=== PATIENT | male | born 1970 | race Two or more races ===

== ENCOUNTER 2018-08-01 16:02 | Inpatient (IN) | payer OTHER ==
[2018-08-01 17:14] VITALS: BMI 33.9
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
[2018-08-01] MEDS ORDERED: ACETAMINOPHEN 325 MG TABLET (FP) PO PRN (20:07)
[2018-08-01] MEDS ORDERED: guaiFENesin/D-METHORPHAN HB 10 ML UNIT-DOSE CUPS PO PRN (20:07)
[2018-08-01] MEDS ORDERED: LOPERAMIDE HCL 2 MG CAPSULE PO PRN (20:07)
[2018-08-01] MEDS ORDERED: P-EPHED 60MG/TRIPROLIDI 2.5MG TABLET PO PRN (20:07)
[2018-08-01] MEDS ORDERED: MAGNESIUM HYDROX 2400MG/30ML ORAL SUSPENSION 30 ML CUP PO PRN (20:07)
[2018-08-01] MEDS ORDERED: MAGNESIUM CITRATE 300 ML BOTTLE PO PRN (20:07)
[2018-08-01] MEDS ORDERED: MENTHOL/PHENOL 1 EACH UD MM PRN (20:07)
[2018-08-01] MEDS ORDERED: NICOTINE POLACRILEX 4 MG GUM BUC PRN (20:32)
[2018-08-01] MEDS ORDERED: chlordiazePOXIDE HCL 25 MG CAPSULE PO PRN (20:36)
[2018-08-01] MEDS ORDERED: chlordiazePOXIDE HCL 25 MG CAPSULE PO ONE (20:45)
[2018-08-01] MEDS: THIAMINE HCL 100 MG TABLET (FP) PO SCH (21:59)
[2018-08-01] MEDS: chlordiazePOXIDE HCL 25 MG CAPSULE PO SCH (21:59)
[2018-08-01] MEDS: cloNIDine HCL 0.1 MG TABLET PO SCH (21:59)
[2018-08-01] MEDS: MELATONIN 5 MG TABLETS PO PRN (22:59)
[2018-08-02] MEDS: hydrOXYzine PAMOATE 50 MG CAPSULE (FP) PO PRN (00:23)
[2018-08-02] MEDS: IBUPROFEN 400 MG TABLET (FP) PO PRN (00:23)
[2018-08-02 00:48] LABS: URINE APPEARANCE CLEAR; URINE BILIRUBIN NEGATIVE (<2.0 mg/dL); URINE COLOR STRAW; URINE GLUCOSE (UA) NEGATIVE (NEGATIVE); URINE KETONE NEGATIVE (NEGATIVE); URINE LEUK ESTERASE TRACE (NEGATIVE); URINE NITRITE NEGATIVE (NEGATIVE); URINE PROTEIN NEGATIVE (NEGATIVE); URINE UROBILINOGEN NEGATIVE mg/dL (0.2-1.0)
[2018-08-02 02:30] LABS: EPI CELLS RARE /HPF (FEW); URINE BACTERIA RARE /hpf (NONE SEEN); URINE MUCUS RARE
[2018-08-02] MEDS: cloNIDine HCL 0.1 MG TABLET PO SCH ×3 (05:46→21:07)
[2018-08-02] MEDS: chlordiazePOXIDE HCL 25 MG CAPSULE PO SCH ×4 (05:47→22:08)
[2018-08-02 10:12] LABS: ALBUMIN 3.2 g/dl (3.4-5.0); ALK PHOS 59 U/L (45-117); ANION GAP 6 MMOL/L (8-16); BILIRUBIN,TOTAL 0.4 mg/dL (0.2-1); BLOOD UREA NITROGEN 13 mg/dL (7-18); CALCIUM 8.5 mg/dL (8.5-10.1); CHLORIDE 109 mmol/L (98-107); CO2 29 mmol/L (21-32); CREATININE 0.8 mg/dL (0.55-1.3); GLUCOSE,RANDOM 99 mg/dL (74-106); POTASSIUM 4.2 mmol/L (3.5-5.1); SGOT/AST 11 U/L (15-37); SGPT/ALT 28 U/L (13-61); SODIUM 144 mmol/L (136-145); TOT PROT 6.2 g/dl (6.4-8.2)
[2018-08-02 10:16] LABS: HEMATOCRIT 42.5 % (35.4-49); HEMOGLOBIN 13.8 GM/dL (11.7-16.9); MCH 28.2 pg (25.7-33.7); MCHC 32.4 g/dl (32.0-35.9); MEAN CELL VOLUME 87.2 fl (80-96); MEAN PLT VOLUME 10.4 fl (7.5-11.1); PLATELET COUNT 148 K/MM3 (134-434); RBC 4.87 M/mm3 (4.00-5.60); RDW 14.3 % (11.9-15.9); WHITE BLOOD COUNT 12.1 K/mm3 (4.0-10.0)
[2018-08-02] MEDS: PRENATAL VITAMINS W/ FOLIC ACID TABLET (FP) PO SCH (10:36)
--- NOTE | 2018-08-02 11:37 | EKG ---
Test Reason : Blood Pressure : / mmHG Vent. Rate : 092 BPM Atrial Rate : 092 BPM P-R Int : 152 ms QRS Dur : 084 ms QT Int : 358 ms P-R-T Axes : 042 013 060 degrees QTc Int : 442 ms NORMAL SINUS RHYTHM SEPTAL INFARCT , AGE UNDETERMINED ABNORMAL ECG NO PREVIOUS ECGS AVAILABLE Confirmed by ELEONORA PADGETT MD ([id number]) on 08/02/2018 11:36:26 AM Referred By: Confirmed By:ELEONORA PADGETT MD
[2018-08-02] MEDS ORDERED: FLU VACCINE QUAD 60 MCG/0.5 ML (MDV 18-19) IM ONE (12:00)
--- NOTE | 2018-08-02 13:41 | PN ---
S CIWA - CIWA Score Nausea/Vomitin Muscle Tremors: 4-Moderate,w/Arms Extend Anxiety: 4-Mod. Anxious/Guarded Agitation: 3 Paroxysmal Sweats: 3 Orientation: 0-Oriented Tacttile Disturbances: 0-None Auditory Disturbances: 0-None Visual Disturbances: 0-None Headache: 0-None Present CIWA-Ar Total Score: 17 S Progress Note (SOAP) Subjective: Patient refused to speak with designer writer Objective: 08/02/18 13:37 Last Vital Signs Temp Pulse Resp BP Pulse Ox 96.7 F L 61 16 103/71 08/02/18 09:07 08/02/18 09:07 08/02/18 09:07 08/02/18 09:07 Laboratory Tests 08/01/18 08/02/18 08/02/18 23:16 07:17 07:17 WBC 12.1 H RBC 4.87 Hgb 13.8 Hct 42.5 MCV 87.2 MCH 28.2 MCHC 32.4 RDW 14.3 Plt Count 148 MPV 10.4 Sodium Potassium Chloride Carbon Dioxide Anion Gap BUN Creatinine Creat Clearance w eGFR Random Glucose Calcium Total Bilirubin AST ALT Alkaline Phosphatase Total Protein Albumin Urine Color Straw Urine Appearance Clear Urine pH 6.0 Ur Specific [place] 1.010 Urine Protein Negative Urine Glucose (UA) Negative Urine Ketones Negative Urine Blood 1+ H Urine Nitrite Negative Urine Bilirubin Negative Urine Urobilinogen Negative Ur Leukocyte Esterase Trace Urine WBC (Auto) 8 Urine RBC (Auto) 3 Ur Epithelial Cells Rare Urine Bacteria Rare Urine Mucus Rare RPR Titer HIV 1&2 Antibody Screen Negative HIV P24 Antigen Negative 08/02/18 08/02/18 07:17 07:17 WBC RBC Hgb Hct MCV MCH MCHC RDW Plt Count MPV Sodium 144 Potassium 4.2 Chloride 109 H Carbon Dioxide 29 Anion Gap 6 L BUN 13 Creatinine 0.8 Creat Clearance w eGFR > 60 Random Glucose 99 Calcium 8.5 Total Bilirubin 0.4 AST 11 L ALT 28 Alkaline Phosphatase 59 Total Protein 6.2 L Albumin 3.2 L Urine Color Urine Appearance Urine pH Ur Specific [place] Urine Protein Urine Glucose (UA) Urine Ketones Urine Blood Urine Nitrite Urine Bilirubin Urine Urobilinogen Ur Leukocyte Esterase Urine WBC (Auto) Urine RBC (Auto) Ur Epithelial Cells Urine Bacteria Urine Mucus RPR Titer Nonreactive HIV 1&2 Antibody Screen HIV P24 Antigen Labs reviewed: wbc 12.1, UA abnormal Assessment: 08/02/18 13:38 Withdrawal sxs Noted with leukocytosis and abnormal UA Plan: Continue detox Leukocytosis: asymptomatic, repeat CBC Abnormal UA: encouraged PO water intake, repeat UA
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
[2018-08-02] MEDS: THIAMINE HCL 100 MG TABLET (FP) PO SCH (22:07)
[2018-08-02] MEDS: MELATONIN 5 MG TABLETS PO PRN (22:08)
[2018-08-03] MEDS: chlordiazePOXIDE HCL 25 MG CAPSULE PO SCH ×3 (06:26→17:54)
[2018-08-03] MEDS: cloNIDine HCL 0.1 MG TABLET PO SCH ×3 (06:26→22:28)
[2018-08-03] MEDS: IBUPROFEN 400 MG TABLET (FP) PO PRN ×2 (06:26→17:56)
[2018-08-03 10:27] LABS: BASO % 0.3 % (0-2.0); EOS % 2.1 % (0-4.5); HEMOGLOBIN 13.9 GM/dL (11.7-16.9); LYMPH % 22.8 % (8-40); MCH 28.3 pg (25.7-33.7); MCHC 32.3 g/dl (32.0-35.9); MEAN CELL VOLUME 87.6 fl (80-96); MONO % 5.6 % (3.8-10.2); NEUT % 69.2 % (42.8-82.8); PLATELET COUNT 148 K/MM3 (134-434); RBC 4.91 M/mm3 (4.00-5.60); RDW 14.1 % (11.9-15.9); WHITE BLOOD COUNT 11.9 K/mm3 (4.0-10.0)
[2018-08-03] MEDS: PRENATAL VITAMINS W/ FOLIC ACID TABLET (FP) PO SCH (10:37)
--- NOTE | 2018-08-03 12:49 | PN ---
[facility] CIWA - CIWA Score Nausea/Vomitin-Mild Nausea/No Vomiting Muscle Tremors: 3 Anxiety: 3 Agitation: 3 Paroxysmal Sweats: 3 Orientation: 0-Oriented Tacttile Disturbances: 0-None Auditory Disturbances: 0-None Visual Disturbances: 0-None Headache: 0-None Present CIWA-Ar Total Score: 13 S Progress Note (SOAP) Subjective: Body aches, bone pain, interrupted sleep Objective: 08/03/18 12:44 Last Vital Signs Temp Pulse Resp BP Pulse Ox 97.2 F L 68 18 91/65 08/03/18 09:15 08/03/18 09:15 08/03/18 09:15 08/03/18 09:15 Hypotension noted Laboratory Tests 08/01/18 08/02/18 08/02/18 23:16 07:17 07:17 WBC 12.1 H RBC 4.87 Hgb 13.8 Hct 42.5 MCV 87.2 MCH 28.2 MCHC 32.4 RDW 14.3 Plt Count 148 MPV 10.4 Absolute Neuts (auto) Neutrophils % Lymphocytes % Monocytes % Eosinophils % Basophils % Nucleated RBC % Sodium Potassium Chloride Carbon Dioxide Anion Gap BUN Creatinine Creat Clearance w eGFR Random Glucose Calcium Total Bilirubin AST ALT Alkaline Phosphatase Total Protein Albumin Urine Color Straw Urine Appearance Clear Urine pH 6.0 Ur Specific [place] 1.010 Urine Protein Negative Urine Glucose (UA) Negative Urine Ketones Negative Urine Blood 1+ H Urine Nitrite Negative Urine Bilirubin Negative Urine Urobilinogen Negative Ur Leukocyte Esterase Trace Urine WBC (Auto) 8 Urine RBC (Auto) 3 Ur Epithelial Cells Rare Urine Bacteria Rare Urine Mucus Rare RPR Titer HIV 1&2 Antibody Screen Negative HIV P24 Antigen Negative 08/02/18 08/02/18 08/03/18 07:17 07:17 07:00 WBC 11.9 H RBC 4.91 Hgb 13.9 Hct 43.0 MCV 87.6 MCH 28.3 MCHC 32.3 RDW 14.1 Plt Count 148 MPV 11.0 Absolute Neuts (auto) 8.2 H Neutrophils % 69.2 Lymphocytes % 22.8 Monocytes % 5.6 Eosinophils % 2.1 Basophils % 0.3 Nucleated RBC % 0 Sodium 144 Potassium 4.2 Chloride 109 H Carbon Dioxide 29 Anion Gap 6 L BUN 13 Creatinine 0.8 Creat Clearance w eGFR > 60 Random Glucose 99 Calcium 8.5 Total Bilirubin 0.4 AST 11 L ALT 28 Alkaline Phosphatase 59 Total Protein 6.2 L Albumin 3.2 L Urine Color Urine Appearance Urine pH Ur Specific [place] Urine Protein Urine Glucose (UA) Urine Ketones Urine Blood Urine Nitrite Urine Bilirubin Urine Urobilinogen Ur Leukocyte Esterase Urine WBC (Auto) Urine RBC (Auto) Ur Epithelial Cells Urine Bacteria Urine Mucus RPR Titer Nonreactive HIV 1&2 Antibody Screen HIV P24 Antigen Labs reviewed: wbc 11.9 (was 12.1), abnormal UA Assessment: 08/03/18 12:46 Withdrawal symptoms Noted with hypotension, leukocytosis and abnormal UA Plan: Continue detox Hypotension: asymptomatic, encouraged PO water intake Leukocytosis: asymptomatic, trended downward mildly, repeat cbc in AM Abnormal UA: encouraged PO water intake, repeat ordered (await specimen)
[2018-08-03] MEDS: chlordiazePOXIDE 5 MG CAPSULE PO SCH (22:27)
[2018-08-03] MEDS: MELATONIN 5 MG TABLETS PO PRN (22:27)
[2018-08-03] MEDS: THIAMINE HCL 100 MG TABLET (FP) PO SCH (22:27)
[2018-08-03] MEDS: hydrOXYzine PAMOATE 50 MG CAPSULE (FP) PO PRN (23:32)
[2018-08-04] MEDS: MAG HYDROX/AL HYDROX/SIMETH 30 ML UNIT-DOSE CUP PO PRN ×2 (01:35→16:53)
[2018-08-04] MEDS ORDERED: TRIMETHOBENZAMIDE HCL 300 MG CAPSULE PO ONE ×2 (02:12→02:30)
[2018-08-04] MEDS: chlordiazePOXIDE 5 MG CAPSULE PO SCH ×3 (06:09→17:23)
[2018-08-04] MEDS ORDERED: ONDANSETRON *ODT* 4 MG TABLET SL PRN (09:51)
[2018-08-04 10:00] LABS: BASO % 0.2 % (0-2.0); EOS % 1.1 % (0-4.5); HEMATOCRIT 50.8 % (35.4-49); HEMOGLOBIN 16.1 GM/dL (11.7-16.9); LYMPH % 10.2 % (8-40); MCH 27.7 pg (25.7-33.7); MCHC 31.7 g/dl (32.0-35.9); MEAN CELL VOLUME 87.4 fl (80-96); MEAN PLT VOLUME 11.2 fl (7.5-11.1); MONO % 3.8 % (3.8-10.2); NEUT % 84.7 % (42.8-82.8); PLATELET COUNT 186 K/MM3 (134-434); RBC 5.81 M/mm3 (4.00-5.60); RDW 14.3 % (11.9-15.9)
[2018-08-04 10:08] VITALS: BP 128/78; PULSE 70; TEMP 96.1
[2018-08-04] MEDS: PRENATAL VITAMINS W/ FOLIC ACID TABLET (FP) PO SCH (10:35)
[2018-08-04] MEDS: IBUPROFEN 400 MG TABLET (FP) PO PRN (10:37)
[2018-08-04] MEDS ORDERED: METHADONE HCL 40 MG DISPERSABLE TABLET PO ONE (14:35)
--- NOTE | 2018-08-04 14:51 | PN ---
S Progress Note Note: Pt requesting Suboxone/methadone. Pt is in active withdrawal with nausea/ vomiting/diarrhea/agitation...Pt is in a methadone program- verified on 08/02- at 84mg/day. Last medicated on 07/16/18. Attempted to call the [place] [facility] to verify pts status. But they could not verify his treatment there as they did not have a release of information and our 3 fax machines could not trasmit pts release. Will start methadone 40mg today- d/w pt agreeable with this dose today and pt will f/u with methadone clinic
--- NOTE | 2018-08-04 15:39 | PN ---
S Progress Note (SOAP) Subjective: N/V, chills, joint pain, diarrhea, interrupted sleep. Patient stated he was in [facility] at [place] and wants to resume his methadone. Patient was on methadone 84mg PO daily and last medicated on 07/16/18. Objective: 08/04/18 15:35 Last Vital Signs Temp Pulse Resp BP Pulse Ox 96.1 F L 70 18 128/78 08/04/18 10:06 08/04/18 10:06 08/04/18 10:06 08/04/18 10:06 Laboratory Tests 08/01/18 08/02/18 08/02/18 23:16 07:17 07:17 WBC 12.1 H RBC 4.87 Hgb 13.8 Hct 42.5 MCV 87.2 MCH 28.2 MCHC 32.4 RDW 14.3 Plt Count 148 MPV 10.4 Absolute Neuts (auto) Neutrophils % Lymphocytes % Monocytes % Eosinophils % Basophils % Nucleated RBC % Sodium Potassium Chloride Carbon Dioxide Anion Gap BUN Creatinine Creat Clearance w eGFR Random Glucose Calcium Total Bilirubin AST ALT Alkaline Phosphatase Total Protein Albumin Urine Color Straw Urine Appearance Clear Urine pH 6.0 Ur Specific [place] 1.010 Urine Protein Negative Urine Glucose (UA) Negative Urine Ketones Negative Urine Blood 1+ H Urine Nitrite Negative Urine Bilirubin Negative Urine Urobilinogen Negative Ur Leukocyte Esterase Trace Urine WBC (Auto) 8 Urine RBC (Auto) 3 Ur Epithelial Cells Rare Urine Bacteria Rare Urine Mucus Rare RPR Titer HIV 1&2 Antibody Screen Negative HIV P24 Antigen Negative 08/02/18 08/02/18 08/03/18 07:17 07:17 07:00 WBC 11.9 H RBC 4.91 Hgb 13.9 Hct 43.0 MCV 87.6 MCH 28.3 MCHC 32.3 RDW 14.1 Plt Count 148 MPV 11.0 Absolute Neuts (auto) 8.2 H Neutrophils % 69.2 Lymphocytes % 22.8 Monocytes % 5.6 Eosinophils % 2.1 Basophils % 0.3 Nucleated RBC % 0 Sodium 144 Potassium 4.2 Chloride 109 H Carbon Dioxide 29 Anion Gap 6 L BUN 13 Creatinine 0.8 Creat Clearance w eGFR > 60 Random Glucose 99 Calcium 8.5 Total Bilirubin 0.4 AST 11 L ALT 28 Alkaline Phosphatase 59 Total Protein 6.2 L Albumin 3.2 L Urine Color Urine Appearance Urine pH Ur Specific [place] Urine Protein Urine Glucose (UA) Urine Ketones Urine Blood Urine Nitrite Urine Bilirubin Urine Urobilinogen Ur Leukocyte Esterase Urine WBC (Auto) Urine RBC (Auto) Ur Epithelial Cells Urine Bacteria Urine Mucus RPR Titer Nonreactive HIV 1&2 Antibody Screen HIV P24 Antigen 08/04/18 07:00 WBC 18.0 H RBC 5.81 H Hgb 16.1 Hct 50.8 H D MCV 87.4 MCH 27.7 MCHC 31.7 L RDW 14.3 Plt Count 186 D MPV 11.2 H Absolute Neuts (auto) 15.3 H Neutrophils % 84.7 H D Lymphocytes % 10.2 D Monocytes % 3.8 Eosinophils % 1.1 Basophils % 0.2 Nucleated RBC % 0 Sodium Potassium Chloride Carbon Dioxide Anion Gap BUN Creatinine Creat Clearance w eGFR Random Glucose Calcium Total Bilirubin AST ALT Alkaline Phosphatase Total Protein Albumin Urine Color Urine Appearance Urine pH Ur Specific [place] Urine Protein Urine Glucose (UA) Urine Ketones Urine Blood Urine Nitrite Urine Bilirubin Urine Urobilinogen Ur Leukocyte Esterase Urine WBC (Auto) Urine RBC (Auto) Ur Epithelial Cells Urine Bacteria Urine Mucus RPR Titer HIV 1&2 Antibody Screen HIV P24 Antigen Labs reviewed: wbc 18 (previously 11.9 >>12.1) Assessment: 08/04/18 15:36 Withdrawal symptoms Noted with increased leukocytosis Plan: Continue detox Encouraged PO water intake Zofran 4mg SL prn Consider tigan IM if no improvement For discharge Tuesday Leukocytosis, increased: asymptomatic, repeat CBC in AM, consider chest xray if no improvement, send urine cx Abnormal UA: encouraged PO water intake, repeat UA ordered (was not done, will reorder) For [facility]: patient restarted on methadone at 40mg PO daily, patient will follow up at his [facility] in [place] on Tuesday after discharge
--- NOTE | 2018-08-04 18:45 | DS ---
[facility] Detox Discharge Summary Admission Date: 08/01/18 Discharge Date: 08/04/18 - History Present History: Alcohol Dependence, Opioid Dependence Pertinent Past History: Pt admitted for supervised alcohol/opioid withdrawal- pt was not given opioid meds intially b/c urine tox screen negative, methadone 84 mg dose was verified but not dose was not renewed as it was not clear if pt was discharged from program. PT leaving AMA today stating that he feels too sick- was given a methadone 40mg dose and offered to give clonidine and vistaril. Pt states will go back to [place] - Physical Exam Results Vital Signs: Vital Signs Temperature 96.1 F L 08/04/18 10:06 Pulse Rate 70 08/04/18 10:06 Respiratory Rate 18 08/04/18 10:06 Blood Pressure 128/78 08/04/18 10:06 O2 Sat by Pulse Oximetry (%) - Medication Discharge Medications: Ambulatory Orders NK [No Known Home Medication] 08/01/18 - Diagnosis (1) Opioid withdrawal Current Visit: Yes Status: Acute (2) Alcohol dependence Current Visit: Yes Status: Active (3) Cocaine dependence Current Visit: Yes Status: Acute - AMA Did Patient Leave Against Medical Advice: Yes
[2018-08-04] MEDS ORDERED: chlordiazePOXIDE HCL 10 MG CAPSULE PO SCH (23:00)
[2018-08-05] MEDS ORDERED: METHADONE HCL 40 MG DISPERSABLE TABLET PO SCH (06:00)
== END 2018-08-04 18:42 | disposition left against medical advice (07) | DRG 770 ==
LOC: YASAS 16:02 → Y3N 19:47
PROC: HZ2ZZZZ Detoxification Services for Substance Abuse Treatment (ICD-10-PCS; principal; 2018-08-01)
DX: F10.230 Alcohol dependence with withdrawal, uncomplicated (principal); F14.20 Cocaine dependence, uncomplicated; F15.20 Other stimulant dependence, uncomplicated; F11.23 Opioid dependence with withdrawal; F12.10 Cannabis abuse, uncomplicated; F17.210 Nicotine dependence, cigarettes, uncomplicated; F32.9 Major depressive disorder, single episode, unspecified; R76.11 Nonspecific reaction to tuberculin skin test without active tuberculosis; R82.90 Unspecified abnormal findings in urine; E66.9 Obesity, unspecified; Z68.32 Body mass index [BMI] 32.0-32.9, adult; Z91.5 Personal history of self-harm; Z59.0 Homelessness
CPT/HCPCS: 36415; 71046-TC-FY; 80053; 81003; 81015; 85025; 85027; 86593; 87389; 90688; 93005; 93010; G0008; J0735; Q0162

== ENCOUNTER 2018-09-18 14:29 | Inpatient (IN) | payer OTHER ==
[2018-09-18 15:23] VITALS: BMI 32.3
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
[2018-09-18] MEDS ORDERED: IBUPROFEN 400 MG TABLET (FP) PO PRN (17:35)
[2018-09-18] MEDS ORDERED: MAG HYDROX/AL HYDROX/SIMETH 30 ML UNIT-DOSE CUP PO PRN (17:35)
[2018-09-18] MEDS ORDERED: chlordiazePOXIDE HCL 25 MG CAPSULE PO PRN (17:35)
[2018-09-18] MEDS ORDERED: LOPERAMIDE HCL 2 MG CAPSULE PO PRN (17:35)
[2018-09-18] MEDS ORDERED: MENTHOL/PHENOL 1 EACH UD MM PRN (17:35)
[2018-09-18] MEDS ORDERED: MAGNESIUM CITRATE 300 ML BOTTLE PO PRN (17:35)
[2018-09-18] MEDS ORDERED: ACETAMINOPHEN 325 MG TABLET (FP) PO PRN (17:35)
[2018-09-18] MEDS ORDERED: MAGNESIUM HYDROX 2400MG/30ML ORAL SUSPENSION 30 ML CUP PO PRN (17:35)
[2018-09-18] MEDS ORDERED: NICOTINE POLACRILEX 2 MG GUM BC PRN (17:35)
[2018-09-18] MEDS ORDERED: chlordiazePOXIDE HCL 25 MG CAPSULE PO ONE (18:00)
[2018-09-18] MEDS: chlordiazePOXIDE HCL 25 MG CAPSULE PO SCH (22:33)
[2018-09-18] MEDS: THIAMINE HCL 100 MG TABLET (FP) PO SCH (22:33)
[2018-09-18] MEDS: IBUPROFEN 600 MG TABLET (FP) PO PRN (22:34)
[2018-09-18] MEDS: MELATONIN 5 MG TABLETS PO PRN (22:35)
[2018-09-19] MEDS: chlordiazePOXIDE HCL 25 MG CAPSULE PO SCH ×4 (05:21→22:24)
[2018-09-19] MEDS: PANTOPRAZOLE 20 MG TABLET (FP) PO SCH (10:47)
[2018-09-19] MEDS: PRENATAL VITAMINS W/ FOLIC ACID TABLET (FP) PO SCH (10:47)
[2018-09-19 11:07] LABS: HEMATOCRIT 40.8 % (35.4-49); MCH 28.2 pg (25.7-33.7); MCHC 31.9 g/dl (32.0-35.9); MEAN CELL VOLUME 88.5 fl (80-96); MEAN PLT VOLUME 10.1 fl (7.5-11.1); PLATELET COUNT 199 K/MM3 (134-434); RBC 4.61 M/mm3 (4.00-5.60); RDW 14.6 % (11.9-15.9); WHITE BLOOD COUNT 9.7 K/mm3 (4.0-10.0)
[2018-09-19 11:25] LABS: URINE APPEARANCE CLEAR; URINE BILIRUBIN NEGATIVE (<2.0 mg/dL); URINE COLOR LTYELLOW; URINE GLUCOSE (UA) NEGATIVE (NEGATIVE); URINE KETONE NEGATIVE (NEGATIVE); URINE LEUK ESTERASE NEGATIVE (NEGATIVE); URINE NITRITE NEGATIVE (NEGATIVE); URINE PROTEIN NEGATIVE (NEGATIVE)
[2018-09-19 11:30] LABS: ALK PHOS 65 U/L (45-117); ANION GAP 7 MMOL/L (8-16); BILIRUBIN,TOTAL 0.5 mg/dL (0.2-1); BLOOD UREA NITROGEN 24 mg/dL (7-18); CALCIUM 8.2 mg/dL (8.5-10.1); CHLORIDE 106 mmol/L (98-107); CO2 28 mmol/L (21-32); CREATININE 0.9 mg/dL (0.55-1.3); GLUCOSE,RANDOM 90 mg/dL (74-106); POTASSIUM 3.8 mmol/L (3.5-5.1); SGOT/AST 17 U/L (15-37); SGPT/ALT 31 U/L (13-61); SODIUM 141 mmol/L (136-145); TOT PROT 6.1 g/dl (6.4-8.2)
[2018-09-19] MEDS ORDERED: CYCLOBENZAPRINE HCL 10 MG TABLET (FP) PO PRN (14:10)
[2018-09-19] MEDS ORDERED: TRIMETHOBENZAMIDE HCL 300 MG CAPSULE PO PRN (14:14)
--- NOTE | 2018-09-19 16:23 | PN ---
S CIWA - CIWA Score Nausea/Vomitin-No Nausea/No Vomiting Muscle Tremors: None Anxiety: 4-Mod. Anxious/Guarded Agitation: 3 Paroxysmal Sweats: 3 Orientation: 0-Oriented Tacttile Disturbances: 3-Moderate Itch/Numb/Burn Auditory Disturbances: 0-None Visual Disturbances: 1-Very Mild Sensitivity Headache: 0-None Present CIWA-Ar Total Score: 14 BHS Progress Note (SOAP) Subjective: Body Aches, Fatigue, Sweating. Objective: PATIENT A & O X 3. IN NO ACUTE DISTRESS. 09/19/18 16:21 Vital Signs Temperature 96.7 F L 09/19/18 13:27 Pulse Rate 75 09/19/18 13:27 Respiratory Rate 18 09/19/18 13:27 Blood Pressure 95/62 09/19/18 13:27 O2 Sat by Pulse Oximetry (%) Laboratory Tests 09/19/18 09/19/18 09/19/18 07:30 07:30 07:30 WBC 9.7 RBC 4.61 Hgb 13.0 Hct 40.8 D MCV 88.5 MCH 28.2 MCHC 31.9 L RDW 14.6 Plt Count 199 MPV 10.1 Sodium 141 Potassium 3.8 Chloride 106 Carbon Dioxide 28 Anion Gap 7 L BUN 24 H Creatinine 0.9 Creat Clearance w eGFR > 60 Random Glucose 90 Calcium 8.2 L Total Bilirubin 0.5 AST 17 ALT 31 Alkaline Phosphatase 65 Total Protein 6.1 L Albumin 3.0 L Urine Color Urine Appearance Urine pH Ur Specific [place] Urine Protein Urine Glucose (UA) Urine Ketones Urine Blood Urine Nitrite Urine Bilirubin Urine Urobilinogen Ur Leukocyte Esterase RPR Titer Nonreactive 09/19/18 07:30 WBC RBC Hgb Hct MCV MCH MCHC RDW Plt Count MPV Sodium Potassium Chloride Carbon Dioxide Anion Gap BUN Creatinine Creat Clearance w eGFR Random Glucose Calcium Total Bilirubin AST ALT Alkaline Phosphatase Total Protein Albumin Urine Color Ltyellow Urine Appearance Clear Urine pH 6.0 Ur Specific [place] 1.018 Urine Protein Negative Urine Glucose (UA) Negative Urine Ketones Negative Urine Blood Negative Urine Nitrite Negative Urine Bilirubin Negative Urine Urobilinogen 2.0 Ur Leukocyte Esterase Negative RPR Titer LABS NOTED. Assessment: 09/19/18 16:22 WITHDRAWAL SYMPTOMS. Plan: CONTINUE DETOX. INCREASE DAILY PO FLUID INTAKE. PRN FLEXERIL PO FOR BODY ACHES / MUSCLE SPASMS.
[2018-09-19] MEDS: IBUPROFEN 600 MG TABLET (FP) PO PRN (18:29)
[2018-09-19] MEDS: THIAMINE HCL 100 MG TABLET (FP) PO SCH (22:23)
[2018-09-19] MEDS: MELATONIN 5 MG TABLETS PO PRN (22:24)
[2018-09-20] MEDS: chlordiazePOXIDE HCL 25 MG CAPSULE PO SCH ×2 (06:40→10:55)
--- NOTE | 2018-09-20 10:11 | PN ---
S CIWA - CIWA Score Nausea/Vomitin-No Nausea/No Vomiting Muscle Tremors: 3 Anxiety: 2 Agitation: 2 Paroxysmal Sweats: 1-Minimal Palms Moist Orientation: 0-Oriented Tacttile Disturbances: 0-None Auditory Disturbances: 0-None Visual Disturbances: 0-None Headache: 2-Mild CIWA-Ar Total Score: 10 S Progress Note (SOAP) Subjective: tremor sweat trouble sleep through the night restlessness Objective: 09/20/18 14:23 Vital Signs Temperature 97.4 F L 09/20/18 14:03 Pulse Rate 70 09/20/18 14:03 Respiratory Rate 20 09/20/18 14:03 Blood Pressure 96/50 L 09/20/18 14:03 O2 Sat by Pulse Oximetry (%) Vital Signs Laboratory Last Values WBC 9.7 K/mm3 (4.0-10.0) 09/19/18 07:30 RBC 4.61 M/mm3 (4.00-5.60) 09/19/18 07:30 Hgb 13.0 GM/dL (11.7-16.9) 09/19/18 07:30 Hct 40.8 % (35.4-49) D 09/19/18 07:30 MCV 88.5 fl (80-96) 09/19/18 07:30 MCH 28.2 pg (25.7-33.7) 09/19/18 07:30 MCHC 31.9 g/dl (32.0-35.9) L 09/19/18 07:30 RDW 14.6 % (11.9-15.9) 09/19/18 07:30 Plt Count 199 K/MM3 (134-434) 09/19/18 07:30 MPV 10.1 fl (7.5-11.1) 09/19/18 07:30 Sodium 141 mmol/L (136-145) 09/19/18 07:30 Potassium 3.8 mmol/L (3.5-5.1) 09/19/18 07:30 Chloride 106 mmol/L (98-107) 09/19/18 07:30 Carbon Dioxide 28 mmol/L (21-32) 09/19/18 07:30 Anion Gap 7 MMOL/L (8-16) L 09/19/18 07:30 BUN 24 mg/dL (7-18) H 09/19/18 07:30 Creatinine 0.9 mg/dL (0.55-1.3) 09/19/18 07:30 Creat Clearance w eGFR > 60 (>60) 09/19/18 07:30 Random Glucose 90 mg/dL (74-106) 09/19/18 07:30 Calcium 8.2 mg/dL (8.5-10.1) L 09/19/18 07:30 Total Bilirubin 0.5 mg/dL (0.2-1) 09/19/18 07:30 AST 17 U/L (15-37) 09/19/18 07:30 ALT 31 U/L (13-61) 09/19/18 07:30 Alkaline Phosphatase 65 U/L (45-117) 09/19/18 07:30 Total Protein 6.1 g/dl (6.4-8.2) L 09/19/18 07:30 Albumin 3.0 g/dl (3.4-5.0) L 09/19/18 07:30 Urine Color Ltyellow 09/19/18 07:30 Urine Appearance Clear 09/19/18 07:30 Urine pH 6.0 (5.0-8.0) 09/19/18 07:30 Ur Specific [place] 1.018 (1.010-1.035) 09/19/18 07:30 Urine Protein Negative (NEGATIVE) 09/19/18 07:30 Urine Glucose (UA) Negative (NEGATIVE) 09/19/18 07:30 Urine Ketones Negative (NEGATIVE) 09/19/18 07:30 Urine Blood Negative (NEGATIVE) 09/19/18 07:30 Urine Nitrite Negative (NEGATIVE) 09/19/18 07:30 Urine Bilirubin Negative (<2.0 mg/dL) 09/19/18 07:30 Urine Urobilinogen 2.0 mg/dL (0.2-1.0) 09/19/18 07:30 Ur Leukocyte Esterase Negative (NEGATIVE) 09/19/18 07:30 RPR Titer Nonreactive (NONREACTIVE) 09/19/18 07:30 lab noted Assessment: 09/20/18 14:24 withdrawal sx Plan: continue detox
[2018-09-20] MEDS: PANTOPRAZOLE 20 MG TABLET (FP) PO SCH (10:55)
[2018-09-20] MEDS: PRENATAL VITAMINS W/ FOLIC ACID TABLET (FP) PO SCH (10:55)
[2018-09-20 14:04] VITALS: BP 96/50; PULSE 70; TEMP 97.4
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
[2018-09-20] MEDS ORDERED: chlordiazePOXIDE 5 MG CAPSULE PO SCH (23:00)
[2018-09-21] MEDS ORDERED: chlordiazePOXIDE HCL 10 MG CAPSULE PO SCH (23:00)
== END 2018-09-20 16:30 | disposition left against medical advice (07) | DRG 770 ==
LOC: YASAS 14:29 → Y3N 17:49
PROC: HZ2ZZZZ Detoxification Services for Substance Abuse Treatment (ICD-10-PCS; principal; 2018-09-18)
DX: F10.230 Alcohol dependence with withdrawal, uncomplicated (principal); F14.20 Cocaine dependence, uncomplicated; F15.20 Other stimulant dependence, uncomplicated; F12.20 Cannabis dependence, uncomplicated; F17.210 Nicotine dependence, cigarettes, uncomplicated; K21.9 Gastro-esophageal reflux disease without esophagitis; R76.11 Nonspecific reaction to tuberculin skin test without active tuberculosis; H55.00 Unspecified nystagmus; R00.0 Tachycardia, unspecified
CPT/HCPCS: 36415; 80053; 81003; 85027; 86593

== ENCOUNTER 2019-10-08 12:04 | Inpatient (IN) | payer OTHER ==
[2019-10-08 13:02] VITALS: BMI 33.9
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
[2019-10-08] MEDS ORDERED: cloNIDine HCL 0.1 MG TABLET PO PRN (13:26)
[2019-10-08] MEDS ORDERED: MAGNESIUM HYDROX 2400MG/30ML ORAL SUSPENSION 30 ML CUP PO PRN (13:26)
[2019-10-08] MEDS ORDERED: MAGNESIUM CITRATE 300 ML BOTTLE PO PRN (13:26)
[2019-10-08] MEDS ORDERED: MENTHOL/PHENOL 1 EACH UD MM PRN (13:26)
[2019-10-08] MEDS ORDERED: ACETAMINOPHEN 325 MG TABLET (FP) PO PRN ×2 (13:26)
[2019-10-08] MEDS ORDERED: chlordiazePOXIDE HCL 25 MG CAPSULE PO PRN (13:26)
[2019-10-08] MEDS ORDERED: BISMUTH SUBSALICYLATE 262 MG/15 ML BTL PO PRN (13:26)
[2019-10-08] MEDS ORDERED: METHOCARBAMOL 500 MG TABLET PO PRN (13:26)
[2019-10-08] MEDS ORDERED: METHADONE HCL 10 MG TABLET (FOR DETOX USE ONLY) PO ONE (14:20)
[2019-10-08] MEDS: IBUPROFEN 400 MG TABLET (FP) PO PRN ×2 (15:26→22:04)
[2019-10-08] MEDS: chlordiazePOXIDE HCL 25 MG CAPSULE PO SCH ×2 (18:10→22:03)
[2019-10-08] MEDS: THIAMINE HCL 100 MG TABLET (FP) PO SCH (22:04)
[2019-10-09] MEDS: MELATONIN 5 MG TABLETS PO PRN (02:51)
[2019-10-09] MEDS: chlordiazePOXIDE HCL 25 MG CAPSULE PO SCH ×4 (05:52→22:07)
[2019-10-09] MEDS ORDERED: METHADONE HCL 10 MG TABLET (FOR DETOX USE ONLY) ONE (08:34)
[2019-10-09] MEDS ORDERED: METHADONE HCL 5 MG TABLET (FOR DETOX USE ONLY) ONE (08:34)
[2019-10-09 09:31] LABS: HEMATOCRIT 37.8 % (35.4-49); MCH 31.2 pg (25.7-33.7); MCHC 34.5 g/dl (32.0-35.9); MEAN CELL VOLUME 90.4 fl (80-96); MEAN PLT VOLUME 10.2 fl (7.5-11.1); PLATELET COUNT 168 K/MM3 (134-434); RBC 4.18 M/mm3 (4.00-5.60); RDW 13.7 % (11.9-15.9)
--- NOTE | 2019-10-09 09:55 | PN ---
[facility] CIWA - CIWA Score Nausea/Vomitin-No Nausea/No Vomiting Muscle Tremors: 3 Anxiety: 2 Agitation: 2 Paroxysmal Sweats: 3 Orientation: 0-Oriented Tacttile Disturbances: 0-None Auditory Disturbances: 0-None Visual Disturbances: 0-None Headache: 0-None Present CIWA-Ar Total Score: 10 BHS COWS - Scale Resting Pulse: 0= [place] 80 or Below Sweatin= Chills/Flushing Restless Observation: 1= Difficult to Sit Still Pupil Size: 0= Normal to Room Light Bone or Joint Aches: 2= Severe Diffuse Aches Runny Nose/ Eye Tearin= Nasal Congestion GI Upset > 30mins: 0= None Tremor Observation of Outstretched Hands: 1= Tremor [place], Not Seen Yawning Observation: 1= 1-2x During Session Anxiety or Irritability: 2=Irritable/Anxious Goose Flesh Skin: 0=Smooth Skin COWS Score: 9 BHS Progress Note (SOAP) Subjective: sweats shakes interrupted sleep body aches irritable Objective: 10/09/19 10:03 Vital Signs Temperature 98.8 F 10/09/19 09:30 Pulse Rate 69 10/09/19 09:30 Respiratory Rate 20 10/09/19 09:30 Blood Pressure 107/65 10/09/19 09:30 O2 Sat by Pulse Oximetry (%) Laboratory Tests 10/09/19 07:45 WBC 11.0 H RBC 4.18 Hgb 13.0 Hct 37.8 MCV 90.4 MCH 31.2 D MCHC 34.5 RDW 13.7 Plt Count 168 MPV 10.2 rest of labs pending aaox3 ambulating no acute distress Assessment: 10/09/19 10:04 withdrawals Plan: continue detox increase fluids
[2019-10-09] MEDS ORDERED: METHADONE (DETOX) 20 MG, METHADONE (DETOX) 5 MG PO ONE (10:00)
[2019-10-09] MEDS: NICOTINE 7 MG/24 HOURS TOPICAL PATCH TD SCH (10:03)
[2019-10-09] MEDS: PRENATAL VITAMINS W/ FOLIC ACID TABLET (FP) PO SCH (10:04)
[2019-10-09] MEDS: IBUPROFEN 400 MG TABLET (FP) PO PRN ×3 (10:06→23:43)
[2019-10-09 10:43] LABS: ALBUMIN 3.5 g/dl (3.4-5.0); BILIRUBIN,TOTAL 0.3 mg/dL (0.2-1); BLOOD UREA NITROGEN 32.1 mg/dL (7-18); CALCIUM 8.2 mg/dL (8.5-10.1); CREATININE 1.1 mg/dL (0.55-1.3); POTASSIUM 4.1 mmol/L (3.5-5.1); TOT PROT 6.3 g/dl (6.4-8.2)
[2019-10-09] MEDS: MAG HYDROX/AL HYDROX/SIMETH 30 ML UNIT-DOSE CUP PO PRN (17:05)
[2019-10-09] MEDS: THIAMINE HCL 100 MG TABLET (FP) PO SCH (22:07)
[2019-10-09] MEDS: hydrOXYzine PAMOATE 25 MG CAPSULE (FP) PO PRN (22:07)
[2019-10-10] MEDS: MAG HYDROX/AL HYDROX/SIMETH 30 ML UNIT-DOSE CUP PO PRN (02:34)
[2019-10-10] MEDS: chlordiazePOXIDE HCL 25 MG CAPSULE PO SCH ×4 (05:29→21:59)
[2019-10-10] MEDS: PANTOPRAZOLE 40 MG TABLET PO SCH (09:20)
[2019-10-10] MEDS: PRENATAL VITAMINS W/ FOLIC ACID TABLET (FP) PO SCH (09:20)
[2019-10-10] MEDS: NICOTINE 7 MG/24 HOURS TOPICAL PATCH TD SCH (09:21)
[2019-10-10] MEDS ORDERED: METHADONE HCL 10 MG TABLET (FOR DETOX USE ONLY) PO ONE (10:00)
[2019-10-10] MEDS: IBUPROFEN 400 MG TABLET (FP) PO PRN (10:11)
--- NOTE | 2019-10-10 13:20 | PN ---
[facility] CIWA - CIWA Score Nausea/Vomitin-No Nausea/No Vomiting Muscle Tremors: 3 Anxiety: 2 Agitation: 2 Paroxysmal Sweats: No Perspiration Orientation: 0-Oriented Tacttile Disturbances: 0-None Auditory Disturbances: 0-None Visual Disturbances: 0-None Headache: 0-None Present CIWA-Ar Total Score: 7 BHS COWS - Scale Resting Pulse: 0= [place] 80 or Below Sweatin= Chills/Flushing Restless Observation: 1= Difficult to Sit Still Pupil Size: 0= Normal to Room Light Bone or Joint Aches: 1= Mild Discomfort Runny Nose/ Eye Tearin= Nasal Congestion GI Upset > 30mins: 0= None Tremor Observation of Outstretched Hands: 1= Tremor [place], Not Seen Yawning Observation: 1= 1-2x During Session Anxiety or Irritability: 1=Feels Anxious/Irritable Goose Flesh Skin: 0=Smooth Skin COWS Score: 7 S Progress Note (SOAP) Subjective: acid reflux toothache interrupted sleep restless Objective: 10/10/19 13:19 Vital Signs Temperature 97.9 F 10/10/19 06:48 Pulse Rate 71 10/10/19 09:31 Respiratory Rate 18 10/10/19 09:31 Blood Pressure 127/76 10/10/19 09:31 O2 Sat by Pulse Oximetry (%) Laboratory Tests 10/09/19 10/09/19 10/09/19 07:45 07:45 07:45 WBC 11.0 H RBC 4.18 Hgb 13.0 Hct 37.8 MCV 90.4 MCH 31.2 D MCHC 34.5 RDW 13.7 Plt Count 168 MPV 10.2 Sodium 139 Potassium 4.1 Chloride 104 Carbon Dioxide 31 Anion Gap 4 L BUN 32.1 H Creatinine 1.1 Est GFR (CKD-EPI)AfAm 90.88 Est GFR (CKD-EPI)NonAf 78.41 Random Glucose 72 L Calcium 8.2 L Total Bilirubin 0.3 AST 22 ALT 35 Alkaline Phosphatase 63 Total Protein 6.3 L Albumin 3.5 RPR Titer Nonreactive HIV 1&2 Antibody Screen HIV P24 Antigen 10/09/19 07:45 WBC RBC Hgb Hct MCV MCH MCHC RDW Plt Count MPV Sodium Potassium Chloride Carbon Dioxide Anion Gap BUN Creatinine Est GFR (CKD-EPI)AfAm Est GFR (CKD-EPI)NonAf Random Glucose Calcium Total Bilirubin AST ALT Alkaline Phosphatase Total Protein Albumin RPR Titer HIV 1&2 Antibody Screen Negative HIV P24 Antigen Negative aaox3 ambulating no acute distress Assessment: 10/10/19 13:19 withdrawals Plan: continue detox increase fluids anbesol prn motrin 600mg prn protonix 40mg daily
[2019-10-10] MEDS: BENZOCAINE 20 % GEL TUBE MM PRN (15:23)
[2019-10-10] MEDS ORDERED: NICOTINE POLACRILEX 2 MG GUM BUC PRN (18:24)
[2019-10-10] MEDS: THIAMINE HCL 100 MG TABLET (FP) PO SCH (21:19)
[2019-10-10] MEDS: MELATONIN 5 MG TABLETS PO PRN (21:20)
[2019-10-11] MEDS ORDERED: chlordiazePOXIDE HCL 10 MG CAPSULE PO PRN
[2019-10-11] MEDS: MAG HYDROX/AL HYDROX/SIMETH 30 ML UNIT-DOSE CUP PO PRN (00:48)
[2019-10-11] MEDS: IBUPROFEN 600 MG TABLET (FP) PO PRN ×3 (00:48→20:53)
[2019-10-11] MEDS: chlordiazePOXIDE HCL 10 MG CAPSULE PO SCH ×4 (06:52→22:00)
[2019-10-11] MEDS ORDERED: METHADONE HCL 5 MG TABLET (FOR DETOX USE ONLY) ONE (08:46)
[2019-10-11] MEDS ORDERED: METHADONE HCL 10 MG TABLET (FOR DETOX USE ONLY) ONE (08:46)
[2019-10-11] MEDS ORDERED: METHADONE (DETOX) 10 MG, METHADONE (DETOX) 5 MG PO ONE (10:00)
[2019-10-11] MEDS: NICOTINE 7 MG/24 HOURS TOPICAL PATCH TD SCH (10:04)
[2019-10-11] MEDS: PRENATAL VITAMINS W/ FOLIC ACID TABLET (FP) PO SCH (10:04)
[2019-10-11] MEDS: PANTOPRAZOLE 40 MG TABLET PO SCH (10:04)
--- NOTE | 2019-10-11 11:57 | PN ---
[facility] CIWA - CIWA Score Nausea/Vomitin-No Nausea/No Vomiting Muscle Tremors: 2 Anxiety: 1-Mildly Anxious Agitation: 2 Paroxysmal Sweats: 1-Minimal Palms Moist Orientation: 0-Oriented Tacttile Disturbances: 0-None Auditory Disturbances: 0-None Visual Disturbances: 0-None Headache: 0-None Present CIWA-Ar Total Score: 6 BHS COWS - Scale Resting Pulse: 0= [place] 80 or Below Sweatin= Chills/Flushing Restless Observation: 1= Difficult to Sit Still Pupil Size: 0= Normal to Room Light Bone or Joint Aches: 1= Mild Discomfort Runny Nose/ Eye Tearin= None GI Upset > 30mins: 0= None Tremor Observation of Outstretched Hands: 1= Tremor [place], Not Seen Yawning Observation: 1= 1-2x During Session Anxiety or Irritability: 1=Feels Anxious/Irritable Goose Flesh Skin: 0=Smooth Skin COWS Score: 6 [facility] Progress Note (SOAP) Subjective: acid reflux feeling better sweats anxiety Objective: 10/11/19 11:57 Vital Signs Temperature 97.3 F L 10/11/19 11:27 Pulse Rate 67 10/11/19 11:27 Respiratory Rate 17 10/11/19 11:27 Blood Pressure 118/70 10/11/19 11:27 O2 Sat by Pulse Oximetry (%) aaox3 ambulating no acute distress Assessment: 10/11/19 11:57 withdrawals Plan: continue detox
[2019-10-11] MEDS: BENZOCAINE 20 % GEL TUBE MM PRN ×2 (13:31→20:55)
[2019-10-11] MEDS: THIAMINE HCL 100 MG TABLET (FP) PO SCH (21:58)
[2019-10-11] MEDS: MELATONIN 5 MG TABLETS PO PRN (21:58)
[2019-10-11] MEDS: hydrOXYzine PAMOATE 25 MG CAPSULE (FP) PO PRN (22:00)
[2019-10-12] MEDS: chlordiazePOXIDE HCL 10 MG CAPSULE PO SCH ×2 (06:14→16:54)
[2019-10-12] MEDS ORDERED: METHADONE HCL 10 MG TABLET (FOR DETOX USE ONLY) PO ONE (10:00)
[2019-10-12] MEDS: NICOTINE 7 MG/24 HOURS TOPICAL PATCH TD SCH (10:06)
[2019-10-12] MEDS: PRENATAL VITAMINS W/ FOLIC ACID TABLET (FP) PO SCH (10:06)
[2019-10-12] MEDS: PANTOPRAZOLE 40 MG TABLET PO SCH (10:06)
[2019-10-12] MEDS: BENZOCAINE 20 % GEL TUBE MM PRN (14:22)
[2019-10-12] MEDS: IBUPROFEN 600 MG TABLET (FP) PO PRN (14:24)
--- NOTE | 2019-10-12 14:29 | PN ---
[facility] CIWA - CIWA Score Nausea/Vomitin-No Nausea/No Vomiting Muscle Tremors: 1-None Visible, but [place] Anxiety: 0-No Anxiety, at Ease Agitation: 0-Normal Activity Paroxysmal Sweats: No Perspiration Orientation: 0-Oriented Tacttile Disturbances: 0-None Auditory Disturbances: 0-None Visual Disturbances: 0-None Headache: 0-None Present CIWA-Ar Total Score: 1 S COWS - Scale Resting Pulse: 0= [place] 80 or Below Sweatin= No chills or Flushing Restless Observation: 1= Difficult to Sit Still Pupil Size: 0= Normal to Room Light Bone or Joint Aches: 0= None Runny Nose/ Eye Tearin= None GI Upset > 30mins: 0= None Tremor Observation of Outstretched Hands: 1= Tremor [place], Not Seen Yawning Observation: 0= None Anxiety or Irritability: 1=Feels Anxious/Irritable Goose Flesh Skin: 0=Smooth Skin COWS Score: 3 [facility] Progress Note (SOAP) Subjective: restless anxiety Objective: 10/12/19 14:28 Vital Signs Temperature 99.1 F 10/12/19 13:59 Pulse Rate 70 10/12/19 13:59 Respiratory Rate 20 10/12/19 13:59 Blood Pressure 104/55 L 10/12/19 13:59 O2 Sat by Pulse Oximetry (%) aaox3 ambulating no acute distress Assessment: 10/12/19 14:28 mild withdrawals Plan: d/c in am at 7am for p/u to [facility].
[2019-10-12] MEDS: THIAMINE HCL 100 MG TABLET (FP) PO SCH (22:09)
[2019-10-12] MEDS: MELATONIN 5 MG TABLETS PO PRN (22:09)
[2019-10-13] MEDS: IBUPROFEN 600 MG TABLET (FP) PO PRN (02:12)
[2019-10-13] MEDS: BENZOCAINE 20 % GEL TUBE MM PRN (02:13)
[2019-10-13] MEDS ORDERED: chlordiazePOXIDE HCL 10 MG CAPSULE PO ONE (05:00)
[2019-10-13] MEDS ORDERED: METHADONE HCL 5 MG TABLET (FOR DETOX USE ONLY) PO ONE (06:00)
[2019-10-13 06:13] VITALS: BP 115/66; PULSE 61; TEMP 98.1
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
== END 2019-10-13 07:01 | disposition home or self-care (01) | DRG 773 ==
LOC: YASAS 12:04 → Y6N 14:04
PROVIDERS: ADMIT Allergy & Immunology; ATTEND Allergy & Immunology
PROC: HZ2ZZZZ Detoxification Services for Substance Abuse Treatment (ICD-10-PCS; principal; 2019-10-08)
DX: F10.230 Alcohol dependence with withdrawal, uncomplicated (principal); F11.23 Opioid dependence with withdrawal; F17.210 Nicotine dependence, cigarettes, uncomplicated; F32.9 Major depressive disorder, single episode, unspecified; K21.9 Gastro-esophageal reflux disease without esophagitis; K08.89 Other specified disorders of teeth and supporting structures; R76.11 Nonspecific reaction to tuberculin skin test without active tuberculosis; Z87.828 Personal history of other (healed) physical injury and trauma; Z91.013 Allergy to seafood; Z91.5 Personal history of self-harm; Z59.0 Homelessness
CPT/HCPCS: 36415; 71046-TC-FY; 80053; 85027; 86593; 87389

== ENCOUNTER 2020-06-13 10:19 | Inpatient (IN) | payer OTHER ==
--- NOTE | 2020-06-13 10:27 | BHS.RME ---
Substance Use & Tx History - Substance Use History Alcohol Substance amount: one to two pints Vodka Frequency of use: Daily Substance route: Oral Date of Last Use: 06/13/20 Heroin Substance amount: 4 bags Frequency of use: Daily Substance route: Inhalation (ex: sniffing or snorting) Date of Last Use: 06/12/20 Cocaine-Crack Substance amount: $100 Frequency of use: Daily Substance route: Smoking Date of Last Use: 06/11/20 Marijuana/Hashish Substance amount: $50 Frequency of use: Daily Substance route: Smoking Date of Last Use: 06/12/20 Nicotine Substance amount: 6 cigs Frequency of use: Daily Substance route: Smoking Date of Last Use: 06/13/20 (\) - Last Treatment Date of last treatment: September 2019, completed Treatment type: Substance Use Disorder (RAND) Where was last treatment: Detox Physical/Psych/Mental Status - Behavior General Behavior: Increased activity (restlessness, agitation) Eye Contact: Normal - Cooperativeness Cooperativeness: Cooperative - Thinking Thought Processes: Tight Thought content: Future oriented - Physical Health Problems Is patient presently having any pain?: No Does patient presently have any injuries (include location): No Does patient currently have a fever: No COWS - Scale Resting Pulse: 0= [place] 80 or Below Sweatin= Chills/Flushing Restless Observation: 0= Sits Still Pupil Size: 0= Normal to Room Light Bone or Joint Aches: 1= Mild Discomfort Runny Nose/ Eye Tearin= None GI Upset > 30mins: 2= Nausea/Diarrhea Tremor Observation: 2= Slight Tremor Visible Yawning Observation: 0= None Anxiety or Irritability: 2=Irritable/Anxious Goose Flesh Skin: 0=Smooth Skin COWS Score: 8 CIWA Nausea/Vomitin Muscle Tremors: 4-Moderate,w/Arms Extend Anxiety: 4-Mod. Anxious/Guarded Agitation: 1-Slight > Activity Paroxysmal Sweats: 1-Minimal Palms Moist Orientation: 0-Oriented Tacttile Disturbances: 0-None Auditory Disturbances: 0-None Visual Disturbances: 0-None Headache: 0-None Present CIWA-Ar Total Score: 12
[2020-06-13 10:33] VITALS: BMI 31.0
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
[2020-06-13] MEDS ORDERED: MAGNESIUM CITRATE 300 ML BOTTLE PO PRN (11:27)
[2020-06-13] MEDS ORDERED: chlordiazePOXIDE HCL 25 MG CAPSULE PO PRN (11:27)
[2020-06-13] MEDS ORDERED: ACETAMINOPHEN 325 MG TABLET (FP) PO PRN (11:27)
[2020-06-13] MEDS ORDERED: MAG HYDROX/AL HYDROX/SIMETH 30 ML UNIT-DOSE CUP PO PRN (11:27)
[2020-06-13] MEDS ORDERED: cloNIDine HCL 0.1 MG TABLET PO PRN (11:27)
[2020-06-13] MEDS ORDERED: METHADONE HCL 10 MG TABLET (FOR DETOX USE ONLY) PO ONE (11:27)
[2020-06-13] MEDS ORDERED: BISMUTH SUBSALICYLATE 262 MG/15 ML BTL PO PRN (11:27)
[2020-06-13] MEDS ORDERED: ONDANSETRON *ODT* 4 MG TABLET SL PRN (11:27)
[2020-06-13] MEDS ORDERED: MENTHOL/PHENOL 1 EACH UD MM PRN (11:27)
[2020-06-13] MEDS ORDERED: MAGNESIUM HYDROX 2400MG/30ML ORAL SUSPENSION 30 ML CUP PO PRN (11:27)
--- NOTE | 2020-06-13 11:56 | PN ---
Teaching Attending Note Name of Resident: Marilee Lazo ATTENDING PHYSICIAN STATEMENT I saw and evaluated the patient. I reviewed the resident's note and discussed the case with the resident. I agree with the resident's findings and plan as documented. SUBJECTIVE: 49 yo with long h/o of OUD and AUD, last here in 09/2019, returns now after having relapsed. Using alcohol and heroin. Wants to complete detox and go to rehab OBJECTIVE: Vital Signs - 24 hr 06/13/20 10:32 Temperature 98.6 F Pulse Rate 70 Respiratory 18 Rate Blood Pressure 128/87 Utox: fentanyl ASSESSMENT AND PLAN: AUD/OUD- start dual detox with methadone and librium
[2020-06-13] MEDS: NICOTINE 14 MG/24 HOURS TOPICAL PATCH TD SCH (13:08)
[2020-06-13] MEDS: chlordiazePOXIDE HCL 25 MG CAPSULE PO SCH ×3 (13:08→22:05)
[2020-06-13] MEDS: hydrOXYzine PAMOATE 25 MG CAPSULE (FP) PO SCH ×3 (13:09→22:05)
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
[2020-06-13 14:21] LABS: HEMATOCRIT 41.3 % (35.4-49); HEMOGLOBIN 13.9 GM/dL (11.7-16.9); MCH 30.3 pg (25.7-33.7); MCHC 33.7 g/dl (32.0-35.9); MEAN PLT VOLUME 11.6 fl (7.5-11.1); PLATELET COUNT 183 K/MM3 (134-434); RBC 4.58 M/mm3 (4.00-5.60); RDW 13.8 % (11.9-15.9); WHITE BLOOD COUNT 14.7 K/mm3 (4.0-10.0)
[2020-06-13 14:38] LABS: BILIRUBIN,TOTAL 0.6 mg/dL (0.2-1); BLOOD UREA NITROGEN 18.4 mg/dL (7-18); CALCIUM 8.9 mg/dL (8.5-10.1); CREATININE 0.8 mg/dL (0.55-1.3); POTASSIUM 4.8 mmol/L (3.5-5.1); TOT PROT 7.3 g/dl (6.4-8.2)
[2020-06-13] MEDS: ACETAMINOPHEN 325 MG TABLET (FP) PO PRN (15:18)
[2020-06-13] MEDS ORDERED: GABAPENTIN 100 MG CAPSULE PO SCH (22:00)
[2020-06-13] MEDS: MELATONIN 5 MG TABLETS PO SCH (22:07)
[2020-06-13] MEDS: GABAPENTIN 100 MG CAPSULE PO SCH (22:07)
[2020-06-13] MEDS: THIAMINE HCL 100 MG TABLET (FP) PO SCH (22:07)
[2020-06-14] MEDS: chlordiazePOXIDE HCL 25 MG CAPSULE PO SCH ×4 (05:14→22:30)
[2020-06-14] MEDS: hydrOXYzine PAMOATE 25 MG CAPSULE (FP) PO SCH ×5 (05:15→22:30)
[2020-06-14] MEDS: GABAPENTIN 100 MG CAPSULE PO SCH ×3 (05:15→22:30)
[2020-06-14] MEDS ORDERED: METHADONE (DETOX) 20 MG, METHADONE (DETOX) 5 MG PO ONE (10:00)
[2020-06-14] MEDS ORDERED: METHADONE HCL 10 MG TABLET (FOR DETOX USE ONLY) ONE (10:17)
[2020-06-14] MEDS ORDERED: METHADONE HCL 5 MG TABLET (FOR DETOX USE ONLY) ONE (10:18)
[2020-06-14] MEDS: PRENATAL VITAMINS W/ FOLIC ACID TABLET (FP) PO SCH (10:50)
[2020-06-14] MEDS: NICOTINE 14 MG/24 HOURS TOPICAL PATCH TD SCH (10:50)
--- NOTE | 2020-06-14 11:04 | PN ---
S CIWA - CIWA Score Nausea/Vomitin-No Nausea/No Vomiting Muscle Tremors: 2 Anxiety: 3 Agitation: 0-Normal Activity Paroxysmal Sweats: 3 Orientation: 0-Oriented Tacttile Disturbances: 0-None Auditory Disturbances: 0-None Visual Disturbances: 0-None Headache: 2-Mild CIWA-Ar Total Score: 10 BHS COWS - Scale Resting Pulse: 0= [place] 80 or Below Sweatin= Chills/Flushing Restless Observation: 1= Difficult to Sit Still Pupil Size: 0= Normal to Room Light Bone or Joint Aches: 2= Severe Diffuse Aches Runny Nose/ Eye Tearin= None GI Upset > 30mins: 0= None Tremor Observation of Outstretched Hands: 2= Slight Tremor Visible Yawning Observation: 2= >3x During Session Anxiety or Irritability: 2=Irritable/Anxious Goose Flesh Skin: 0=Smooth Skin COWS Score: 10 BHS Progress Note (SOAP) Subjective: c/o body aches, anxiety, irritability, headache, and shakes. Objective: 06/14/20 11:01 Vital Signs 06/14/20 06/14/20 06:18 08:36 Temperature 97.1 F L 97.1 F L Pulse Rate 60 77 Respiratory 18 18 Rate Blood Pressure 100/63 106/73 O2 Sat by Pulse 96 Oximetry (%) Laboratory Last Values WBC 14.7 K/mm3 (4.0-10.0) H 06/13/20 11:40 RBC 4.58 M/mm3 (4.00-5.60) 06/13/20 11:40 Hgb 13.9 GM/dL (11.7-16.9) 06/13/20 11:40 Hct 41.3 % (35.4-49) 06/13/20 11:40 MCV 90.0 fl (80-96) 06/13/20 11:40 MCH 30.3 pg (25.7-33.7) 06/13/20 11:40 MCHC 33.7 g/dl (32.0-35.9) 06/13/20 11:40 RDW 13.8 % (11.9-15.9) 06/13/20 11:40 Plt Count 183 K/MM3 (134-434) 06/13/20 11:40 MPV 11.6 fl (7.5-11.1) H D 06/13/20 11:40 Sodium 141 mmol/L (136-145) 06/13/20 11:40 Potassium 4.8 mmol/L (3.5-5.1) 06/13/20 11:40 Chloride 110 mmol/L (98-107) H 06/13/20 11:40 Carbon Dioxide 27 mmol/L (21-32) 06/13/20 11:40 Anion Gap 5 MMOL/L (8-16) L 06/13/20 11:40 BUN 18.4 mg/dL (7-18) H 06/13/20 11:40 Creatinine 0.8 mg/dL (0.55-1.3) 06/13/20 11:40 Est GFR (CKD-EPI)AfAm 121.57 06/13/20 11:40 Est GFR (CKD-EPI)NonAf 104.89 06/13/20 11:40 Random Glucose 85 mg/dL (74-106) 06/13/20 11:40 Calcium 8.9 mg/dL (8.5-10.1) 06/13/20 11:40 Total Bilirubin 0.6 mg/dL (0.2-1) 06/13/20 11:40 AST 15 U/L (15-37) 06/13/20 11:40 ALT 27 U/L (13-61) 06/13/20 11:40 Alkaline Phosphatase 62 U/L (45-117) 06/13/20 11:40 Total Protein 7.3 g/dl (6.4-8.2) 06/13/20 11:40 Albumin 4.0 g/dl (3.4-5.0) 06/13/20 11:40 Syphilis Serology Non-reactive (NONREACTIVE) 06/13/20 11:40 COVID-19 ([facility]) Not detected (Not Detected) 06/13/20 12:45 Labs noted with elevated wbc. Assessment: 06/14/20 11:01 AOX3, in no acute respiratory distress. Full ROM, ambulating in the unit. Withdrawal symptoms. Leukocytosis. Plan: continue detox. Repeat wbc level in AM.
[2020-06-14] MEDS: ACETAMINOPHEN 325 MG TABLET (FP) PO PRN (14:36)
--- NOTE | 2020-06-14 16:15 | EKG ---
Test Reason : Blood Pressure : / mmHG Vent. Rate : 061 BPM Atrial Rate : 061 BPM P-R Int : 168 ms QRS Dur : 094 ms QT Int : 392 ms P-R-T Axes : -01 017 010 degrees QTc Int : 394 ms NORMAL SINUS RHYTHM NORMAL ECG WHEN COMPARED WITH ECG OF 01-AUG-2018 21:50, VENT. RATE HAS DECREASED BY 31 BPM Confirmed by MD Bubba, Laz ([id number]) on 06/14/2020 4:14:51 PM Referred By: DR TAN Confirmed By:Laz Mac MD
[2020-06-14] MEDS: MELATONIN 5 MG TABLETS PO SCH (22:31)
[2020-06-14] MEDS: THIAMINE HCL 100 MG TABLET (FP) PO SCH (23:34)
[2020-06-15] MEDS: GABAPENTIN 100 MG CAPSULE PO SCH ×3 (05:40→22:06)
[2020-06-15] MEDS: chlordiazePOXIDE HCL 25 MG CAPSULE PO SCH ×4 (05:40→22:06)
[2020-06-15] MEDS: hydrOXYzine PAMOATE 25 MG CAPSULE (FP) PO SCH ×5 (05:40→22:05)
[2020-06-15] MEDS ORDERED: METHADONE HCL 10 MG TABLET (FOR DETOX USE ONLY) PO ONE (10:00)
[2020-06-15] MEDS: PRENATAL VITAMINS W/ FOLIC ACID TABLET (FP) PO SCH (10:21)
[2020-06-15] MEDS: METHOCARBAMOL 500 MG TABLET PO PRN (10:22)
[2020-06-15] MEDS: NICOTINE 14 MG/24 HOURS TOPICAL PATCH TD SCH (10:43)
[2020-06-15 12:02] LABS: BASO % 0.4 % (0-2.0); EOS % 4.4 % (0-4.5); HEMATOCRIT 38.6 % (35.4-49); HEMOGLOBIN 12.8 GM/dL (11.7-16.9); LYMPH % 44.6 % (8-40); MCH 29.5 pg (25.7-33.7); MCHC 33.2 g/dl (32.0-35.9); MEAN PLT VOLUME 10.9 fl (7.5-11.1); MONO % 5.5 % (3.8-10.2); NEUT % 45.1 % (42.8-82.8); PLATELET COUNT 169 K/MM3 (134-434); RBC 4.34 M/mm3 (4.00-5.60); RDW 13.7 % (11.9-15.9); WHITE BLOOD COUNT 8.8 K/mm3 (4.0-10.0)
--- NOTE | 2020-06-15 12:27 | PN ---
S CIWA - CIWA Score Nausea/Vomitin-Mild Nausea/No Vomiting Muscle Tremors: 2 Anxiety: 2 Agitation: 0-Normal Activity Paroxysmal Sweats: No Perspiration Orientation: 0-Oriented Tacttile Disturbances: 0-None Auditory Disturbances: 0-None Visual Disturbances: 2-Mild Sensitivity Headache: 2-Mild CIWA-Ar Total Score: 9 BHS COWS - Scale Resting Pulse: 0= [place] 80 or Below Sweatin= Chills/Flushing Restless Observation: 0= Sits Still Pupil Size: 1= Pupils >than Normal Bone or Joint Aches: 1= Mild Discomfort Runny Nose/ Eye Tearin= None GI Upset > 30mins: 2= Nausea/Diarrhea Tremor Observation of Outstretched Hands: 2= Slight Tremor Visible Yawning Observation: 0= None Anxiety or Irritability: 2=Irritable/Anxious Goose Flesh Skin: 0=Smooth Skin COWS Score: 9 S Progress Note (SOAP) Subjective: 49 years old male was admitted on 06/13/20 for alcohol and opiate withdrawal sx management treating with librium and methadone detox regiment feels ok today ate breakfast and lunch in room resting in bed encourage to discuss the aftercare with staff encourage mr rowe to continuous pickling line pickler narcan from pharmacy upon discharge from detox Objective: 06/15/20 12:31 Vital Signs - 24 hr 06/14/20 06/14/20 06/15/20 16:43 20:33 05:39 Temperature 97.1 F L 97.1 F L 97.2 F L Pulse Rate 66 63 61 Respiratory 18 18 18 Rate Blood Pressure 119/82 102/69 99/73 O2 Sat by Pulse 97 98 Oximetry (%) 06/15/20 08:45 Temperature 96.3 F L Pulse Rate 62 Respiratory 18 Rate Blood Pressure 92/62 O2 Sat by Pulse Oximetry (%) Laboratory Tests 06/13/20 06/13/20 06/13/20 11:40 11:40 11:40 WBC 14.7 H RBC 4.58 Hgb 13.9 Hct 41.3 MCV 90.0 MCH 30.3 MCHC 33.7 RDW 13.8 Plt Count 183 MPV 11.6 H D Absolute Neuts (auto) Neutrophils % Lymphocytes % Monocytes % Eosinophils % Basophils % Nucleated RBC % Sodium 141 Potassium 4.8 Chloride 110 H Carbon Dioxide 27 Anion Gap 5 L BUN 18.4 H Creatinine 0.8 Est GFR (CKD-EPI)AfAm 121.57 Est GFR (CKD-EPI)NonAf 104.89 Random Glucose 85 Calcium 8.9 Total Bilirubin 0.6 AST 15 ALT 27 Alkaline Phosphatase 62 Total Protein 7.3 Albumin 4.0 Syphilis Serology Non-reactive COVID-19 ([facility]) 06/13/20 06/15/20 12:45 07:30 WBC 8.8 RBC 4.34 Hgb 12.8 Hct 38.6 MCV 89.0 MCH 29.5 MCHC 33.2 RDW 13.7 Plt Count 169 MPV 10.9 Absolute Neuts (auto) 4.0 Neutrophils % 45.1 D Lymphocytes % 44.6 H D Monocytes % 5.5 Eosinophils % 4.4 D Basophils % 0.4 Nucleated RBC % 0 Sodium Potassium Chloride Carbon Dioxide Anion Gap BUN Creatinine Est GFR (CKD-EPI)AfAm Est GFR (CKD-EPI)NonAf Random Glucose Calcium Total Bilirubin AST ALT Alkaline Phosphatase Total Protein Albumin Syphilis Serology COVID-19 ([facility]) Not detected 06/15/20 12:34 06/15/20 12:34 lab noted Assessment: 06/15/20 12:35 alcohol and opiate withdrawal Plan: librium and methadone regiments
[2020-06-15] MEDS: IBUPROFEN 400 MG TABLET (FP) PO PRN (13:15)
[2020-06-15] MEDS: NICOTINE POLACRILEX 2 MG GUM BUC PRN (17:30)
[2020-06-15] MEDS: THIAMINE HCL 100 MG TABLET (FP) PO SCH (22:05)
[2020-06-15] MEDS: MELATONIN 5 MG TABLETS PO SCH (22:06)
[2020-06-15] MEDS: ACETAMINOPHEN 325 MG TABLET (FP) PO PRN (23:46)
[2020-06-16] MEDS ORDERED: chlordiazePOXIDE HCL 10 MG CAPSULE PO PRN
[2020-06-16] MEDS: GABAPENTIN 100 MG CAPSULE PO SCH ×3 (05:19→22:01)
[2020-06-16] MEDS: chlordiazePOXIDE HCL 10 MG CAPSULE PO SCH ×4 (05:19→22:01)
[2020-06-16] MEDS: hydrOXYzine PAMOATE 25 MG CAPSULE (FP) PO SCH ×5 (07:22→22:01)
[2020-06-16] MEDS ORDERED: METHADONE HCL 5 MG TABLET (FOR DETOX USE ONLY) ONE (09:36)
[2020-06-16] MEDS ORDERED: METHADONE HCL 10 MG TABLET (FOR DETOX USE ONLY) ONE (09:36)
[2020-06-16] MEDS ORDERED: METHADONE (DETOX) 10 MG, METHADONE (DETOX) 5 MG PO ONE (10:00)
[2020-06-16] MEDS: PRENATAL VITAMINS W/ FOLIC ACID TABLET (FP) PO SCH (10:09)
[2020-06-16] MEDS: NICOTINE 14 MG/24 HOURS TOPICAL PATCH TD SCH (10:09)
[2020-06-16] MEDS: IBUPROFEN 400 MG TABLET (FP) PO PRN ×2 (10:10→17:55)
[2020-06-16] MEDS: METHOCARBAMOL 500 MG TABLET PO PRN (10:11)
--- NOTE | 2020-06-16 11:06 | PN ---
S CIWA - CIWA Score Nausea/Vomitin-Mild Nausea/No Vomiting Muscle Tremors: 1-None Visible, but [place] Anxiety: 1-Mildly Anxious Agitation: 0-Normal Activity Paroxysmal Sweats: No Perspiration Orientation: 0-Oriented Tacttile Disturbances: 1-Very Mild Itch/Numbness Auditory Disturbances: 0-None Visual Disturbances: 1-Very Mild Sensitivity Headache: 1-Very Mild CIWA-Ar Total Score: 6 BHS COWS - Scale Resting Pulse: 0= [place] 80 or Below Sweatin= No chills or Flushing Restless Observation: 0= Sits Still Pupil Size: 1= Pupils >than Normal Bone or Joint Aches: 1= Mild Discomfort Runny Nose/ Eye Tearin= None GI Upset > 30mins: 2= Nausea/Diarrhea Tremor Observation of Outstretched Hands: 1= Tremor [place], Not Seen Yawning Observation: 0= None Anxiety or Irritability: 1=Feels Anxious/Irritable Goose Flesh Skin: 0=Smooth Skin COWS Score: 6 S Progress Note (SOAP) Subjective: 49 years old male was admitted on 06/13/20 for alcohol and opiate withdrawal sx management treating with librium and methadone detox regiment mr rowe agrees to slate picker narcan from pharmacy upon discharged from detox encourage mr rowe to consider medication assisted treatment program for opiate abuse treatment Objective: 06/16/20 11:07 Vital Signs - 24 hr 06/15/20 06/15/20 06/15/20 12:29 16:32 20:20 Temperature 96.3 F L 97.1 F L 96.9 F L Pulse Rate 63 20 L 78 Respiratory 18 62 H 18 Rate Blood Pressure 106/72 99/66 153/75 O2 Sat by Pulse 98 99 Oximetry (%) 06/16/20 06/16/20 06:13 08:59 Temperature 97.1 F L 97.5 F L Pulse Rate 52 L 70 Respiratory 18 20 Rate Blood Pressure 105/68 126/76 O2 Sat by Pulse 97 97 Oximetry (%) Laboratory Tests 06/13/20 06/13/20 06/13/20 11:40 11:40 11:40 WBC 14.7 H RBC 4.58 Hgb 13.9 Hct 41.3 MCV 90.0 MCH 30.3 MCHC 33.7 RDW 13.8 Plt Count 183 MPV 11.6 H D Absolute Neuts (auto) Neutrophils % Lymphocytes % Monocytes % Eosinophils % Basophils % Nucleated RBC % Sodium 141 Potassium 4.8 Chloride 110 H Carbon Dioxide 27 Anion Gap 5 L BUN 18.4 H Creatinine 0.8 Est GFR (CKD-EPI)AfAm 121.57 Est GFR (CKD-EPI)NonAf 104.89 Random Glucose 85 Calcium 8.9 Total Bilirubin 0.6 AST 15 ALT 27 Alkaline Phosphatase 62 Total Protein 7.3 Albumin 4.0 Syphilis Serology Non-reactive COVID-19 ([facility]) 06/13/20 06/15/20 12:45 07:30 WBC 8.8 RBC 4.34 Hgb 12.8 Hct 38.6 MCV 89.0 MCH 29.5 MCHC 33.2 RDW 13.7 Plt Count 169 MPV 10.9 Absolute Neuts (auto) 4.0 Neutrophils % 45.1 D Lymphocytes % 44.6 H D Monocytes % 5.5 Eosinophils % 4.4 D Basophils % 0.4 Nucleated RBC % 0 Sodium Potassium Chloride Carbon Dioxide Anion Gap BUN Creatinine Est GFR (CKD-EPI)AfAm Est GFR (CKD-EPI)NonAf Random Glucose Calcium Total Bilirubin AST ALT Alkaline Phosphatase Total Protein Albumin Syphilis Serology COVID-19 ([facility]) Not detected wbc within acceptable range without medical intervention Assessment: 06/16/20 11:08 alcohol and opiate withdrawal Plan: librium and methadone regiments
[2020-06-16] MEDS: NICOTINE POLACRILEX 2 MG GUM BUC PRN (18:31)
[2020-06-16] MEDS: THIAMINE HCL 100 MG TABLET (FP) PO SCH (22:01)
[2020-06-16] MEDS: MELATONIN 5 MG TABLETS PO SCH (22:01)
[2020-06-17] MEDS: GABAPENTIN 100 MG CAPSULE PO SCH ×2 (06:42→14:03)
[2020-06-17] MEDS: hydrOXYzine PAMOATE 25 MG CAPSULE (FP) PO SCH ×4 (06:42→17:15)
[2020-06-17] MEDS: chlordiazePOXIDE HCL 10 MG CAPSULE PO SCH ×2 (06:42→17:15)
[2020-06-17] MEDS: IBUPROFEN 400 MG TABLET (FP) PO PRN (06:42)
[2020-06-17] MEDS ORDERED: METHADONE HCL 10 MG TABLET (FOR DETOX USE ONLY) PO ONE (10:00)
[2020-06-17] MEDS: ACETAMINOPHEN 325 MG TABLET (FP) PO PRN (10:13)
[2020-06-17] MEDS: NICOTINE 14 MG/24 HOURS TOPICAL PATCH TD SCH (10:15)
[2020-06-17] MEDS: PRENATAL VITAMINS W/ FOLIC ACID TABLET (FP) PO SCH (10:15)
--- NOTE | 2020-06-17 10:47 | PN ---
[facility] CIWA - CIWA Score Nausea/Vomitin-No Nausea/No Vomiting Muscle Tremors: 2 Anxiety: 2 Agitation: 2 Paroxysmal Sweats: No Perspiration Orientation: 0-Oriented Tacttile Disturbances: 0-None Auditory Disturbances: 0-None Visual Disturbances: 0-None Headache: 1-Very Mild CIWA-Ar Total Score: 7 BHS COWS - Scale Resting Pulse: 1= [place] 81-100 Sweatin= No chills or Flushing Restless Observation: 0= Sits Still Pupil Size: 0= Normal to Room Light Bone or Joint Aches: 1= Mild Discomfort Runny Nose/ Eye Tearin= Nasal Congestion GI Upset > 30mins: 1= Stomach Cramp Tremor Observation of Outstretched Hands: 2= Slight Tremor Visible Yawning Observation: 0= None Anxiety or Irritability: 2=Irritable/Anxious Goose Flesh Skin: 0=Smooth Skin COWS Score: 8 S Progress Note (SOAP) Subjective: alert,irritable,anxious,interrupted sleep,aching pain,dental pain Objective: 06/17/20 15:48 Vital Signs Temperature 96.4 F L 06/17/20 12:48 Pulse Rate 84 06/17/20 12:48 Respiratory Rate 20 06/17/20 12:48 Blood Pressure 133/91 06/17/20 12:48 O2 Sat by Pulse Oximetry (%) 98 06/17/20 12:48 06/17/20 15:50 Laboratory Last Values WBC 8.8 K/mm3 (4.0-10.0) 06/15/20 07:30 RBC 4.34 M/mm3 (4.00-5.60) 06/15/20 07:30 Hgb 12.8 GM/dL (11.7-16.9) 06/15/20 07:30 Hct 38.6 % (35.4-49) 06/15/20 07:30 MCV 89.0 fl (80-96) 06/15/20 07:30 MCH 29.5 pg (25.7-33.7) 06/15/20 07:30 MCHC 33.2 g/dl (32.0-35.9) 06/15/20 07:30 RDW 13.7 % (11.9-15.9) 06/15/20 07:30 Plt Count 169 K/MM3 (134-434) 06/15/20 07:30 MPV 10.9 fl (7.5-11.1) 06/15/20 07:30 Absolute Neuts (auto) 4.0 K/mm3 (1.5-8.0) 06/15/20 07:30 Neutrophils % 45.1 % (42.8-82.8) D 06/15/20 07:30 Lymphocytes % 44.6 % (8-40) H D 06/15/20 07:30 Monocytes % 5.5 % (3.8-10.2) 06/15/20 07:30 Eosinophils % 4.4 % (0-4.5) D 06/15/20 07:30 Basophils % 0.4 % (0-2.0) 06/15/20 07:30 Nucleated RBC % 0 % (0-0) 06/15/20 07:30 Sodium 141 mmol/L (136-145) 06/13/20 11:40 Potassium 4.8 mmol/L (3.5-5.1) 06/13/20 11:40 Chloride 110 mmol/L (98-107) H 06/13/20 11:40 Carbon Dioxide 27 mmol/L (21-32) 06/13/20 11:40 Anion Gap 5 MMOL/L (8-16) L 06/13/20 11:40 BUN 18.4 mg/dL (7-18) H 06/13/20 11:40 Creatinine 0.8 mg/dL (0.55-1.3) 06/13/20 11:40 Est GFR (CKD-EPI)AfAm 121.57 06/13/20 11:40 Est GFR (CKD-EPI)NonAf 104.89 06/13/20 11:40 Random Glucose 85 mg/dL (74-106) 06/13/20 11:40 Calcium 8.9 mg/dL (8.5-10.1) 06/13/20 11:40 Total Bilirubin 0.6 mg/dL (0.2-1) 06/13/20 11:40 AST 15 U/L (15-37) 06/13/20 11:40 ALT 27 U/L (13-61) 06/13/20 11:40 Alkaline Phosphatase 62 U/L (45-117) 06/13/20 11:40 Total Protein 7.3 g/dl (6.4-8.2) 06/13/20 11:40 Albumin 4.0 g/dl (3.4-5.0) 06/13/20 11:40 Syphilis Serology Non-reactive (NONREACTIVE) 06/13/20 11:40 COVID-19 ([facility]) Not detected (Not Detected) 06/13/20 12:45 Assessment: 06/17/20 15:51 withdrawal symptom Plan: continue detox methadone and librium regimen,discharge in am
[2020-06-17] MEDS ORDERED: BENZOCAINE 20 % GEL TUBE MM PRN (13:12)
[2020-06-17 17:21] VITALS: BP 119/62; PULSE 60; TEMP 97.5
[2020-06-17] MEDS ORDERED: MASKS NR ONE (17:26)
--- NOTE | 2020-06-17 18:42 | DS ---
[facility] Detox Discharge Summary Admission Date: 06/13/20 Discharge Date: 06/17/20 - History Additional Comments: Patient is scheduled for discharge tomorrow but wants to leave now because of urgent family issues. Patient is medically stable to be discharged home. Discharge instructions and patient education done. Patient was safely detoxed and responded well to therapy. He is alert and oriented x 3, ambulates independently, not in acute distress and vital signs stable. He reports that his medications was sent to his pharmacy by the provider. Pertinent Past History: alcohol dependence opioid dependence Cannabis dependence Cocaine dependence Nicotine dependence Obesity Leukocytosis Nystagmus GERD depression Positive PPD - Physical Exam Results Vital Signs: Vital Signs Temperature 97.5 F L 06/17/20 16:27 Pulse Rate 60 06/17/20 16:27 Respiratory Rate 18 06/17/20 16:27 Blood Pressure 119/62 06/17/20 16:27 O2 Sat by Pulse Oximetry (%) 98 06/17/20 12:48 Laboratory Last Values WBC 8.8 K/mm3 (4.0-10.0) 06/15/20 07:30 RBC 4.34 M/mm3 (4.00-5.60) 06/15/20 07:30 Hgb 12.8 GM/dL (11.7-16.9) 06/15/20 07:30 Hct 38.6 % (35.4-49) 06/15/20 07:30 MCV 89.0 fl (80-96) 06/15/20 07:30 MCH 29.5 pg (25.7-33.7) 06/15/20 07:30 MCHC 33.2 g/dl (32.0-35.9) 06/15/20 07:30 RDW 13.7 % (11.9-15.9) 06/15/20 07:30 Plt Count 169 K/MM3 (134-434) 06/15/20 07:30 MPV 10.9 fl (7.5-11.1) 06/15/20 07:30 Absolute Neuts (auto) 4.0 K/mm3 (1.5-8.0) 06/15/20 07:30 Neutrophils % 45.1 % (42.8-82.8) D 06/15/20 07:30 Lymphocytes % 44.6 % (8-40) H D 06/15/20 07:30 Monocytes % 5.5 % (3.8-10.2) 06/15/20 07:30 Eosinophils % 4.4 % (0-4.5) D 06/15/20 07:30 Basophils % 0.4 % (0-2.0) 06/15/20 07:30 Nucleated RBC % 0 % (0-0) 06/15/20 07:30 Sodium 141 mmol/L (136-145) 06/13/20 11:40 Potassium 4.8 mmol/L (3.5-5.1) 06/13/20 11:40 Chloride 110 mmol/L (98-107) H 06/13/20 11:40 Carbon Dioxide 27 mmol/L (21-32) 06/13/20 11:40 Anion Gap 5 MMOL/L (8-16) L 06/13/20 11:40 BUN 18.4 mg/dL (7-18) H 06/13/20 11:40 Creatinine 0.8 mg/dL (0.55-1.3) 06/13/20 11:40 Est GFR (CKD-EPI)AfAm 121.57 06/13/20 11:40 Est GFR (CKD-EPI)NonAf 104.89 06/13/20 11:40 Random Glucose 85 mg/dL (74-106) 06/13/20 11:40 Calcium 8.9 mg/dL (8.5-10.1) 06/13/20 11:40 Total Bilirubin 0.6 mg/dL (0.2-1) 06/13/20 11:40 AST 15 U/L (15-37) 06/13/20 11:40 ALT 27 U/L (13-61) 06/13/20 11:40 Alkaline Phosphatase 62 U/L (45-117) 06/13/20 11:40 Total Protein 7.3 g/dl (6.4-8.2) 06/13/20 11:40 Albumin 4.0 g/dl (3.4-5.0) 06/13/20 11:40 Syphilis Serology Non-reactive (NONREACTIVE) 06/13/20 11:40 COVID-19 ([facility]) Not detected (Not Detected) 06/13/20 12:45 Pertinent Admission Physical Exam Findings: Alcohol dependence Opioid dependence - Treatment Hospital Course: Detoxed Safely, Responded well, Discharged Condition Good - Medication Discharge Medications: Ambulatory Orders Naloxone HCl [Narcan] 4 mg NS ASDIR PRN #1 spray 06/15/20 - Diagnosis (1) Opioid dependence with withdrawal Status: Chronic (2) Cannabis dependence Status: Chronic (3) Cocaine dependence Status: Chronic (4) Nicotine dependence Status: Chronic Qualifiers: Nicotine product type: cigarettes Substance use status: uncomplicated Qualified Code(s): F17.210 - Nicotine dependence, cigarettes, uncomplicated (5) Alcohol dependence Status: Acute (6) Leukocytosis Status: Chronic (7) Nystagmus Status: Chronic (8) Obesity Status: Chronic (9) Depression Status: Chronic (10) Gastroesophageal reflux disease Status: Chronic (11) PPD positive Status: Chronic - AMA Did Patient Leave Against Medical Advice: No
[2020-06-18] MEDS ORDERED: chlordiazePOXIDE HCL 10 MG CAPSULE PO ONE (05:00)
[2020-06-18] MEDS ORDERED: METHADONE HCL 5 MG TABLET (FOR DETOX USE ONLY) PO ONE (06:00)
== END 2020-06-17 18:44 | disposition home or self-care (01) | DRG 773 ==
LOC: YASAS 10:19 → Y3N 10:52
PROVIDERS: ADMIT Allergy & Immunology; ATTEND Allergy & Immunology
PROC: HZ2ZZZZ Detoxification Services for Substance Abuse Treatment (ICD-10-PCS; principal; 2020-06-13)
DX: F11.23 Opioid dependence with withdrawal (principal); F10.230 Alcohol dependence with withdrawal, uncomplicated; F14.20 Cocaine dependence, uncomplicated; F12.20 Cannabis dependence, uncomplicated; F17.210 Nicotine dependence, cigarettes, uncomplicated; F19.24 Other psychoactive substance dependence with psychoactive substance-induced mood disorder; F32.9 Major depressive disorder, single episode, unspecified; F41.9 Anxiety disorder, unspecified; D72.829 Elevated white blood cell count, unspecified; H55.00 Unspecified nystagmus; K21.9 Gastro-esophageal reflux disease without esophagitis; E66.9 Obesity, unspecified; Z68.31 Body mass index [BMI] 31.0-31.9, adult; R76.11 Nonspecific reaction to tuberculin skin test without active tuberculosis; Z87.828 Personal history of other (healed) physical injury and trauma; Z91.013 Allergy to seafood; Z56.0 Unemployment, unspecified; Z59.0 Homelessness
CPT/HCPCS: 36415; 80053; 85025; 85027; 86780; 93005; 93010; U0003

== ENCOUNTER 2020-11-19 15:54 | Inpatient (IN) | payer OTHER ==
[2020-11-19 19:36] VITALS: BMI 28.0
[2020-11-19] MEDS ORDERED: MENTHOL/PHENOL 1 EACH UD MM PRN (21:32)
[2020-11-19] MEDS ORDERED: MAG HYDROX/AL HYDROX/SIMETH 30 ML UNIT-DOSE CUP PO PRN (21:32)
[2020-11-19] MEDS ORDERED: MAGNESIUM CITRATE 300 ML BOTTLE PO PRN (21:32)
[2020-11-19] MEDS ORDERED: IBUPROFEN 400 MG TABLET (FP) PO PRN (21:32)
[2020-11-19] MEDS ORDERED: MAGNESIUM HYDROX 2400MG/30ML ORAL SUSPENSION 30 ML CUP PO PRN (21:32)
[2020-11-19] MEDS ORDERED: BISMUTH SUBSALICYLATE 524 MG/30 ML UD PO PRN (21:32)
[2020-11-19] MEDS ORDERED: ACETAMINOPHEN 325 MG TABLET (FP) PO PRN ×2 (21:32)
[2020-11-19] MEDS ORDERED: NICOTINE POLACRILEX 2 MG GUM BUC PRN (21:32)
[2020-11-19] MEDS ORDERED: cloNIDine HCL 0.1 MG TABLET PO PRN (21:34)
[2020-11-19] MEDS ORDERED: METHADONE (DETOX) 20 MG, METHADONE (DETOX) 5 MG PO ONE (21:34)
[2020-11-19] MEDS ORDERED: METHADONE HCL 10 MG TABLET (FOR DETOX USE ONLY) PO ONE (21:34)
[2020-11-19] MEDS ORDERED: MELATONIN 5 MG TABLETS PO SCH (22:00)
[2020-11-20] MEDS ORDERED: METHADONE HCL 10 MG TABLET (FOR DETOX USE ONLY) ONE (00:02)
[2020-11-20] MEDS ORDERED: METHADONE HCL 5 MG TABLET (FOR DETOX USE ONLY) ONE (00:02)
[2020-11-20] MEDS: ASPIRIN COATED 81 MG TABLET.EC PO SCH ×2 (00:07→10:22)
[2020-11-20] MEDS: THIAMINE HCL 100 MG TABLET (FP) PO SCH ×2 (00:11→21:23)
[2020-11-20] MEDS ORDERED: METHADONE HCL 10 MG TABLET (FOR DETOX USE ONLY) PO ONE (10:00)
[2020-11-20] MEDS: PRENATAL VITAMINS W/ FOLIC ACID TABLET (FP) PO SCH (10:21)
[2020-11-20] MEDS: hydrOXYzine PAMOATE 25 MG CAPSULE (FP) PO PRN (10:24)
[2020-11-20 13:44] LABS: POTASSIUM 4.5 mmol/L (3.5-5.1)
[2020-11-20 13:49] LABS: HEMATOCRIT 37.1 % (35.4-49); HEMOGLOBIN 12.4 GM/dL (11.7-16.9); MCH 30.3 pg (25.7-33.7); MCHC 33.3 g/dl (32.0-35.9); MEAN CELL VOLUME 91.1 fl (80-96); PLATELET COUNT 161 K/MM3 (134-434); RBC 4.08 M/mm3 (4.00-5.60); RDW 13.6 % (11.9-15.9); WHITE BLOOD COUNT 8.1 K/mm3 (4.0-10.0)
[2020-11-20 13:50] LABS: ALBUMIN 3.7 g/dl (3.4-5.0); BLOOD UREA NITROGEN 10.5 mg/dL (7-18)
[2020-11-20 13:53] LABS: BILIRUBIN,TOTAL 0.5 mg/dL (0.2-1); TOT PROT 6.5 g/dl (6.4-8.2)
[2020-11-20 13:54] LABS: CREATININE 0.8 mg/dL (0.55-1.3)
[2020-11-20] MEDS: traZODone HCL 50 MG TABLET (FP) PO PRN (21:23)
[2020-11-20] MEDS ORDERED: traZODone HCL 50 MG TABLET (FP) PO SCH (22:00)
[2020-11-21] MEDS ORDERED: METHADONE HCL 10 MG TABLET (FOR DETOX USE ONLY) PO ONE (10:00)
[2020-11-21] MEDS ORDERED: METHADONE HCL 5 MG TABLET (FOR DETOX USE ONLY) PO ONE (10:00)
[2020-11-21] MEDS: PRENATAL VITAMINS W/ FOLIC ACID TABLET (FP) PO SCH (10:36)
[2020-11-21] MEDS: METHOCARBAMOL 500 MG TABLET PO PRN (10:36)
[2020-11-21] MEDS: ASPIRIN COATED 81 MG TABLET.EC PO SCH (10:36)
[2020-11-21] MEDS: THIAMINE HCL 100 MG TABLET (FP) PO SCH (22:04)
[2020-11-21] MEDS: traZODone HCL 50 MG TABLET (FP) PO PRN (22:04)
[2020-11-22] MEDS ORDERED: METHADONE HCL 10 MG TABLET (FOR DETOX USE ONLY) PO ONE (10:00)
[2020-11-22] MEDS: PRENATAL VITAMINS W/ FOLIC ACID TABLET (FP) PO SCH (10:18)
[2020-11-22] MEDS: ASPIRIN COATED 81 MG TABLET.EC PO SCH (10:18)
[2020-11-22] MEDS: METHOCARBAMOL 500 MG TABLET PO PRN (13:14)
[2020-11-22] MEDS: hydrOXYzine PAMOATE 25 MG CAPSULE (FP) PO PRN (18:44)
[2020-11-22] MEDS: THIAMINE HCL 100 MG TABLET (FP) PO SCH (22:12)
[2020-11-22] MEDS: traZODone HCL 50 MG TABLET (FP) PO PRN (22:14)
[2020-11-23 08:17] VITALS: TEMP 97.5
[2020-11-23] MEDS ORDERED: METHADONE HCL 5 MG TABLET (FOR DETOX USE ONLY) PO ONE (10:00)
[2020-11-23 10:12] VITALS: BP 114/77; PULSE 77
== END 2020-11-23 10:05 | disposition home or self-care (01) | DRG 773 ==
LOC: YASAS 15:54 → Y6N 22:35
PROVIDERS: ADMIT Allergy & Immunology; ATTEND Allergy & Immunology
DX: F11.23 Opioid dependence with withdrawal (principal); F14.10 Cocaine abuse, uncomplicated; F12.10 Cannabis abuse, uncomplicated; F17.213 Nicotine dependence, cigarettes, with withdrawal; F19.282 Other psychoactive substance dependence with psychoactive substance-induced sleep disorder; R76.11 Nonspecific reaction to tuberculin skin test without active tuberculosis; F19.24 Other psychoactive substance dependence with psychoactive substance-induced mood disorder; Z87.828 Personal history of other (healed) physical injury and trauma; Z98.890 Other specified postprocedural states; Z56.0 Unemployment, unspecified; Z59.0 Homelessness; Z91.013 Allergy to seafood
CPT/HCPCS: 36415; 80053; 85027; 86780; C9803; J0735; U0003

== ENCOUNTER 2021-06-15 14:12 | Inpatient (IN) | payer OTHER ==
[2021-06-15 16:15] VITALS: BMI 28.2
[2021-06-15] MEDS ORDERED: NICOTINE 10 MG CARTRIDGE (INHALER) IH PRN (17:42)
[2021-06-15] MEDS ORDERED: IBUPROFEN 400 MG TABLET (FP) PO PRN (17:42)
[2021-06-15] MEDS ORDERED: ACETAMINOPHEN 325 MG TABLET (FP) PO PRN ×2 (17:42)
[2021-06-15] MEDS ORDERED: MAGNESIUM CITRATE 300 ML BOTTLE PO PRN (17:42)
[2021-06-15] MEDS ORDERED: cloNIDine HCL 0.1 MG TABLET PO PRN (17:42)
[2021-06-15] MEDS ORDERED: diazePAM 5 MG TABLET PO PRN (17:42)
[2021-06-15] MEDS ORDERED: MAGNESIUM HYDROX 2400MG/30ML ORAL SUSPENSION 30 ML CUP PO PRN (17:42)
[2021-06-15] MEDS ORDERED: methaDONE HCL 10 MG TABLET (FOR DETOX USE ONLY) PO ONE (17:42)
[2021-06-15] MEDS ORDERED: ONDANSETRON *ODT* 4 MG TABLET SL PRN (17:42)
[2021-06-15] MEDS ORDERED: BISMUTH SUBSALICYLATE 524 MG/30 ML PO PRN (17:42)
[2021-06-15] MEDS ORDERED: METHOCARBAMOL 500 MG TABLET PO PRN (17:42)
[2021-06-15] MEDS ORDERED: MENTHOL/PHENOL 1 EACH UD MM PRN (17:42)
[2021-06-15] MEDS ORDERED: NICOTINE 14 MG/24 HOURS TOPICAL PATCH TD PRN (17:42)
[2021-06-15] MEDS ORDERED: MAG HYDROX/AL HYDROX/SIMETH 30 ML UNIT-DOSE CUP PO PRN (17:42)
[2021-06-15] MEDS: diazePAM 5 MG TABLET PO SCH ×2 (18:58→22:03)
[2021-06-15] MEDS: PRENATAL VITAMINS W/ FOLIC ACID TABLET (FP) PO SCH (19:02)
[2021-06-15] MEDS: hydrOXYzine PAMOATE 25 MG CAPSULE (FP) PO SCH ×2 (19:05→22:04)
[2021-06-15] MEDS: THIAMINE HCL 100 MG TABLET (FP) PO SCH (22:02)
[2021-06-15] MEDS: MELATONIN 5 MG TABLETS PO SCH (22:04)
[2021-06-16] MEDS: hydrOXYzine PAMOATE 25 MG CAPSULE (FP) PO SCH ×5 (05:16→22:56)
[2021-06-16] MEDS: diazePAM 5 MG TABLET PO SCH ×4 (05:17→22:55)
[2021-06-16] MEDS ORDERED: methaDONE HCL 10 MG TABLET (FOR DETOX USE ONLY) ONE (09:09)
[2021-06-16] MEDS: PRENATAL VITAMINS W/ FOLIC ACID TABLET (FP) PO SCH (10:41)
[2021-06-16 11:46] LABS: HEMOGLOBIN 12.2 GM/dL (11.7-16.9); MCH 29.8 pg (25.7-33.7); MEAN CELL VOLUME 87.8 fl (80-96); MEAN PLT VOLUME 10.3 fl (7.5-11.1); PLATELET COUNT 153 10^3/uL (134-434); RBC 4.11 M/mm3 (4.00-5.60); WHITE BLOOD COUNT 8.2 K/mm3 (4.0-10.0)
[2021-06-16 11:51] LABS: ALBUMIN 3.6 g/dl (3.4-5.0); BLOOD UREA NITROGEN 12.6 mg/dL (7-18)
[2021-06-16 11:58] LABS: BILIRUBIN,TOTAL 0.3 mg/dL (0.2-1); TOT PROT 6.7 g/dl (6.4-8.2)
[2021-06-16 11:59] LABS: CREATININE 0.7 mg/dL (0.55-1.3)
[2021-06-16] MEDS: MELATONIN 5 MG TABLETS PO SCH (22:56)
[2021-06-16] MEDS: THIAMINE HCL 100 MG TABLET (FP) PO SCH (22:56)
[2021-06-17] MEDS: hydrOXYzine PAMOATE 25 MG CAPSULE (FP) PO SCH ×4 (05:28→17:00)
[2021-06-17] MEDS: diazePAM 5 MG TABLET PO SCH ×2 (05:28→13:37)
[2021-06-17] MEDS ORDERED: methaDONE HCL 10 MG TABLET (FOR DETOX USE ONLY) PO ONE (10:00)
[2021-06-17] MEDS: PRENATAL VITAMINS W/ FOLIC ACID TABLET (FP) PO SCH (10:27)
[2021-06-17 18:16] VITALS: BP 102/54; PULSE 57; TEMP 98.7
[2021-06-18] MEDS ORDERED: diazePAM 5 MG TABLET PO SCH (06:00)
[2021-06-19] MEDS ORDERED: diazePAM 5 MG TABLET PO ONE (06:00)
[2021-06-19] MEDS ORDERED: methaDONE HCL 10 MG TABLET (FOR DETOX USE ONLY) PO ONE (10:00)
== END 2021-06-17 18:21 | disposition left against medical advice (07) | DRG 770 ==
LOC: YASAS 14:12 → Y6N 17:46
PROVIDERS: ADMIT Allergy & Immunology; ATTEND Allergy & Immunology
PROC: HZ2ZZZZ Detoxification Services for Substance Abuse Treatment (ICD-10-PCS; principal; 2021-06-15)
DX: F11.23 Opioid dependence with withdrawal (principal); F10.230 Alcohol dependence with withdrawal, uncomplicated; F14.20 Cocaine dependence, uncomplicated; F12.10 Cannabis abuse, uncomplicated; F17.210 Nicotine dependence, cigarettes, uncomplicated; Z91.013 Allergy to seafood; Z86.11 Personal history of tuberculosis; Z56.0 Unemployment, unspecified; Z59.0 Homelessness
CPT/HCPCS: 36415; 80053; 85027; 86780; C9803; U0003; U0005

== ENCOUNTER 2022-03-08 11:39 | Inpatient (IN) | payer OTHER ==
[2022-03-08 12:08] VITALS: BMI 29.5
[2022-03-08] MEDS ORDERED: chlordiazePOXIDE HCL 25 MG CAPSULE PO PRN (12:35)
[2022-03-08] MEDS ORDERED: NALOXONE HCL (KLOXXADO) 8 MG SPRAY NS PRN (12:35)
[2022-03-08] MEDS ORDERED: MAGNESIUM HYDROX 2400MG/30ML ORAL SUSPENSION 30 ML CUP PO PRN (12:35)
[2022-03-08] MEDS ORDERED: MAG HYDROX/AL HYDROX/SIMETH 30 ML UNIT-DOSE CUP PO PRN (12:35)
[2022-03-08] MEDS ORDERED: cloNIDine HCL 0.1 MG TABLET PO PRN (12:35)
[2022-03-08] MEDS ORDERED: NICOTINE POLACRILEX 2 MG GUM BUC PRN (12:35)
[2022-03-08] MEDS ORDERED: MAGNESIUM CITRATE 300 ML BOTTLE PO PRN (12:35)
[2022-03-08] MEDS ORDERED: IBUPROFEN 400 MG TABLET (FP) PO PRN (12:35)
[2022-03-08] MEDS ORDERED: methaDONE HCL 10 MG TABLET (FOR DETOX USE ONLY) PO ONE (12:35)
[2022-03-08] MEDS ORDERED: BENZOCAINE/MENTHOL (CHLORASEPTIC ) LOZENGE MM PRN (12:35)
[2022-03-08] MEDS ORDERED: LOPERAMIDE HCL 2 MG CAPSULE PO PRN (12:35)
[2022-03-08] MEDS ORDERED: DICYCLOMINE HCL 10 MG CAPSULE PO PRN (12:35)
[2022-03-08] MEDS ORDERED: ONDANSETRON *ODT* 4 MG TABLET SL PRN (12:35)
[2022-03-08] MEDS ORDERED: NICOTINE 10 MG CARTRIDGE (INHALER) IH PRN (12:35)
[2022-03-08] MEDS ORDERED: BISMUTH SUBSALICYLATE 262 MG/15 ML BTL PO PRN (12:35)
[2022-03-08] MEDS ORDERED: IBUPROFEN 600 MG TABLET (FP) PO PRN (12:35)
[2022-03-08] MEDS ORDERED: ACETAMINOPHEN 325 MG TABLET (FP) PO PRN ×2 (12:35)
[2022-03-08] MEDS: hydrOXYzine PAMOATE 25 MG CAPSULE (FP) PO SCH ×3 (14:48→23:31)
[2022-03-08] MEDS: PRENATAL VITAMINS W/ FOLIC ACID TABLET (FP) PO SCH (14:51)
[2022-03-08 15:03] LABS: HEMATOCRIT 34.2 % (35.4-49); HEMOGLOBIN 11.5 GM/dL (11.7-16.9); MCH 29.1 pg (25.7-33.7); MCHC 33.7 g/dl (32.0-35.9); MEAN CELL VOLUME 86.4 fl (80-96); MEAN PLT VOLUME 9.6 fl (7.5-11.1); PLATELET COUNT 259 10^3/uL (134-434); RBC 3.95 M/mm3 (4.00-5.60); RDW 14.2 % (11.9-15.9); WHITE BLOOD COUNT 9.9 K/mm3 (4.0-10.0)
[2022-03-08 15:19] LABS: ALBUMIN 3.4 g/dl (3.4-5.0); BLOOD UREA NITROGEN 14.8 mg/dL (7-18); CALCIUM 9.1 mg/dL (8.5-10.1)
[2022-03-08 15:21] LABS: BILIRUBIN,TOTAL 0.3 mg/dL (0.2-1)
[2022-03-08 15:23] LABS: CREATININE 0.9 mg/dL (0.55-1.3)
[2022-03-08] MEDS: chlordiazePOXIDE HCL 25 MG CAPSULE PO SCH ×2 (17:22→23:31)
[2022-03-08] MEDS: THIAMINE HCL 100 MG TABLET (FP) PO SCH (23:31)
[2022-03-08] MEDS: MELATONIN 5 MG TABLETS PO SCH (23:31)
[2022-03-09] MEDS: hydrOXYzine PAMOATE 25 MG CAPSULE (FP) PO SCH ×5 (05:00→22:35)
[2022-03-09] MEDS: chlordiazePOXIDE HCL 25 MG CAPSULE PO SCH (05:00)
[2022-03-09] MEDS ORDERED: LORazepam 1 MG TABLET PO PRN (08:54)
[2022-03-09] MEDS ORDERED: methaDONE HCL 10 MG TABLET (FOR DETOX USE ONLY) ONE (09:02)
[2022-03-09] MEDS: PRENATAL VITAMINS W/ FOLIC ACID TABLET (FP) PO SCH (10:06)
[2022-03-09] MEDS: LORazepam 2 MG TABLET PO SCH ×3 (10:07→22:35)
[2022-03-09] MEDS: THIAMINE HCL 100 MG TABLET (FP) PO SCH (22:36)
[2022-03-09] MEDS: MELATONIN 5 MG TABLETS PO SCH (22:36)
[2022-03-10] MEDS ORDERED: chlordiazePOXIDE HCL 25 MG CAPSULE PO SCH (05:00)
[2022-03-10] MEDS: hydrOXYzine PAMOATE 25 MG CAPSULE (FP) PO SCH ×5 (05:16→22:38)
[2022-03-10] MEDS: LORazepam 2 MG TABLET PO SCH ×4 (05:16→22:37)
[2022-03-10] MEDS ORDERED: methaDONE HCL 10 MG TABLET (FOR DETOX USE ONLY) PO ONE (10:00)
[2022-03-10] MEDS: METHOCARBAMOL 500 MG TABLET PO PRN (10:14)
[2022-03-10] MEDS: PRENATAL VITAMINS W/ FOLIC ACID TABLET (FP) PO SCH (10:14)
[2022-03-10 12:00] LABS: CALCIUM 9.2 mg/dL (8.5-10.1)
[2022-03-10 12:01] LABS: BLOOD UREA NITROGEN 15.5 mg/dL (7-18)
[2022-03-10 12:03] LABS: CREATININE 0.8 mg/dL (0.55-1.3)
[2022-03-10 12:05] LABS: BILIRUBIN,TOTAL 0.5 mg/dL (0.2-1); TOT PROT 6.4 g/dl (6.4-8.2)
[2022-03-10] MEDS: THIAMINE HCL 100 MG TABLET (FP) PO SCH (22:37)
[2022-03-10] MEDS: MELATONIN 5 MG TABLETS PO SCH (22:38)
[2022-03-11] MEDS ORDERED: chlordiazePOXIDE HCL 10 MG CAPSULE PO PRN
[2022-03-11] MEDS ORDERED: chlordiazePOXIDE HCL 10 MG CAPSULE PO SCH (05:00)
[2022-03-11] MEDS: hydrOXYzine PAMOATE 25 MG CAPSULE (FP) PO SCH ×3 (05:09→14:45)
[2022-03-11] MEDS: LORazepam 1 MG TABLET PO SCH ×2 (05:09→10:18)
[2022-03-11] MEDS ORDERED: methaDONE HCL 10 MG TABLET (FOR DETOX USE ONLY) ONE (08:53)
[2022-03-11] MEDS: PRENATAL VITAMINS W/ FOLIC ACID TABLET (FP) PO SCH (10:19)
[2022-03-11] MEDS: METHOCARBAMOL 500 MG TABLET PO PRN (10:19)
[2022-03-11 13:08] VITALS: BP 120/50; PULSE 71; TEMP 97.8
[2022-03-12] MEDS ORDERED: LORazepam 0.5 MG TABLET PO PRN
[2022-03-12] MEDS ORDERED: LORazepam 0.5 MG TABLET PO SCH (05:00)
[2022-03-12] MEDS ORDERED: chlordiazePOXIDE HCL 10 MG CAPSULE PO SCH (05:00)
[2022-03-12] MEDS ORDERED: methaDONE HCL 10 MG TABLET (FOR DETOX USE ONLY) PO ONE (10:00)
[2022-03-13] MEDS ORDERED: LORazepam 0.5 MG TABLET PO ONE (05:00)
[2022-03-13] MEDS ORDERED: chlordiazePOXIDE HCL 10 MG CAPSULE PO ONE (05:00)
== END 2022-03-11 16:25 | disposition left against medical advice (07) | DRG 770 ==
LOC: YASAS 11:39 → Y6N 14:08
PROVIDERS: ADMIT Allergy & Immunology; ATTEND Surgery
PROC: HZ2ZZZZ Detoxification Services for Substance Abuse Treatment (ICD-10-PCS; principal; 2022-03-08)
DX: F11.23 Opioid dependence with withdrawal (principal); F10.20 Alcohol dependence, uncomplicated; F12.20 Cannabis dependence, uncomplicated; F17.210 Nicotine dependence, cigarettes, uncomplicated; F19.24 Other psychoactive substance dependence with psychoactive substance-induced mood disorder; F32.A Depression, unspecified; K21.9 Gastro-esophageal reflux disease without esophagitis; R74.8 Abnormal levels of other serum enzymes; Z86.11 Personal history of tuberculosis; Z88.0 Allergy status to penicillin; Z91.010 Allergy to peanuts; Z91.013 Allergy to seafood
CPT/HCPCS: 36415; 71046-TC-FY; 80053; 83036; 85027; 86780; C9803-CS; U0003; U0005

== ENCOUNTER 2022-08-02 11:16 | Inpatient (IN) | payer OTHER ==
[2022-08-02 12:14] VITALS: BMI 28.5
[2022-08-02] MEDS ORDERED: NALOXONE HCL (KLOXXADO) 8 MG SPRAY NS PRN (12:41)
[2022-08-02] MEDS ORDERED: NICOTINE POLACRILEX 2 MG GUM BUC PRN (12:41)
[2022-08-02] MEDS ORDERED: IBUPROFEN 600 MG TABLET (FP) PO PRN (12:41)
[2022-08-02] MEDS ORDERED: ACETAMINOPHEN 325 MG TABLET (FP) PO PRN ×2 (12:41)
[2022-08-02] MEDS ORDERED: BISMUTH SUBSALICYLATE 524 MG/30 ML PO PRN (12:41)
[2022-08-02] MEDS ORDERED: cloNIDine HCL 0.1 MG TABLET PO PRN (12:41)
[2022-08-02] MEDS ORDERED: METHOCARBAMOL 500 MG TABLET PO PRN (12:41)
[2022-08-02] MEDS ORDERED: MAGNESIUM HYDROX 2400MG/30ML ORAL SUSPENSION 30 ML CUP PO PRN (12:41)
[2022-08-02] MEDS ORDERED: IBUPROFEN 400 MG TABLET (FP) PO PRN (12:41)
[2022-08-02] MEDS ORDERED: LOPERAMIDE HCL 2 MG CAPSULE PO PRN (12:41)
[2022-08-02] MEDS ORDERED: NICOTINE 10 MG CARTRIDGE (INHALER) IH PRN (12:41)
[2022-08-02] MEDS ORDERED: ONDANSETRON *ODT* 4 MG TABLET SL PRN (12:41)
[2022-08-02] MEDS ORDERED: DICYCLOMINE HCL 10 MG CAPSULE PO PRN (12:41)
[2022-08-02] MEDS ORDERED: BENZOCAINE/MENTHOL (CHLORASEPTIC ) LOZENGE MM PRN (12:41)
[2022-08-02] MEDS ORDERED: methaDONE HCL 10 MG TABLET (FOR DETOX USE ONLY) PO ONE (13:45)
[2022-08-02 17:06] LABS: HEMATOCRIT 34.5 % (35.4-49); HEMOGLOBIN 11.8 GM/dL (11.7-16.9); MCH 31.2 pg (25.7-33.7); MCHC 34.3 g/dl (32.0-35.9); MEAN CELL VOLUME 91.2 fl (80-96); MEAN PLT VOLUME 10.5 fl (7.5-11.1); PLATELET COUNT 144 10^3/uL (134-434); RBC 3.78 M/mm3 (4.00-5.60); RDW 14.3 % (11.9-15.9)
[2022-08-02 17:14] LABS: CALCIUM 8.7 mg/dL (8.5-10.1)
[2022-08-02 17:15] LABS: ALBUMIN 3.2 g/dl (3.4-5.0)
[2022-08-02 17:16] LABS: BLOOD UREA NITROGEN 10.7 mg/dL (7-18)
[2022-08-02 17:18] LABS: CREATININE 0.9 mg/dL (0.55-1.3)
[2022-08-02 17:20] LABS: BILIRUBIN,TOTAL 0.3 mg/dL (0.2-1); TOT PROT 7.2 g/dl (6.4-8.2)
[2022-08-02] MEDS: chlordiazePOXIDE HCL 25 MG CAPSULE PO SCH ×2 (17:36→22:47)
[2022-08-02] MEDS: PRENATAL VITAMINS W/ FOLIC ACID TABLET (FP) PO SCH (17:36)
[2022-08-02] MEDS: THIAMINE HCL 100 MG TABLET (FP) PO SCH (22:46)
[2022-08-02] MEDS: MELATONIN 5 MG TABLETS PO SCH (22:46)
[2022-08-03] MEDS: chlordiazePOXIDE HCL 25 MG CAPSULE PO SCH ×4 (06:28→22:38)
[2022-08-03] MEDS: PRENATAL VITAMINS W/ FOLIC ACID TABLET (FP) PO SCH (10:17)
[2022-08-03] MEDS: THIAMINE HCL 100 MG TABLET (FP) PO SCH (22:41)
[2022-08-03] MEDS: MELATONIN 5 MG TABLETS PO SCH (22:41)
[2022-08-04] MEDS: chlordiazePOXIDE HCL 25 MG CAPSULE PO SCH ×4 (06:56→22:33)
[2022-08-04] MEDS ORDERED: methaDONE HCL 10 MG TABLET (FOR DETOX USE ONLY) PO ONE (10:00)
[2022-08-04] MEDS: PRENATAL VITAMINS W/ FOLIC ACID TABLET (FP) PO SCH (10:14)
[2022-08-04 11:36] LABS: SGOT/AST 63 U/L (15-37); SGPT/ALT 97 U/L (13-61)
[2022-08-04] MEDS: MAG HYDROX/AL HYDROX/SIMETH 30 ML UNIT-DOSE CUP PO PRN (17:47)
[2022-08-04] MEDS: THIAMINE HCL 100 MG TABLET (FP) PO SCH (22:33)
[2022-08-04] MEDS: MELATONIN 5 MG TABLETS PO SCH (22:33)
[2022-08-05] MEDS: MAG HYDROX/AL HYDROX/SIMETH 30 ML UNIT-DOSE CUP PO PRN (03:58)
[2022-08-05] MEDS: chlordiazePOXIDE HCL 10 MG CAPSULE PO SCH ×2 (07:00→10:38)
[2022-08-05] MEDS: PRENATAL VITAMINS W/ FOLIC ACID TABLET (FP) PO SCH (10:38)
[2022-08-05 12:36] VITALS: BP 121/78; PULSE 66; RESP 19; TEMP 98.1
[2022-08-06] MEDS ORDERED: chlordiazePOXIDE HCL 10 MG CAPSULE PO SCH (05:00)
[2022-08-06] MEDS ORDERED: methaDONE HCL 10 MG TABLET (FOR DETOX USE ONLY) PO ONE (10:00)
[2022-08-07] MEDS ORDERED: chlordiazePOXIDE HCL 10 MG CAPSULE PO ONE (05:00)
== END 2022-08-05 13:54 | disposition home or self-care (01) | DRG 773 ==
LOC: YASAS 11:16 → Y3N 15:14
PROVIDERS: ADMIT Allergy & Immunology; ATTEND Surgery
PROC: HZ2ZZZZ Detoxification Services for Substance Abuse Treatment (ICD-10-PCS; principal; 2022-08-02)
DX: F11.23 Opioid dependence with withdrawal (principal); F10.230 Alcohol dependence with withdrawal, uncomplicated; F14.20 Cocaine dependence, uncomplicated; F12.20 Cannabis dependence, uncomplicated; F17.210 Nicotine dependence, cigarettes, uncomplicated; F43.10 Post-traumatic stress disorder, unspecified; G47.00 Insomnia, unspecified; Z86.11 Personal history of tuberculosis
CPT/HCPCS: 36415; 80053; 84450; 84460; 85027; 86780; 87811; C9803-CS; U0003; U0005

== ENCOUNTER 2022-10-30 23:36 | Emergency (ER) | payer OTHER ==
[2022-10-30 23:59] VITALS: BP 128/83; PULSE 56; RESP 18; TEMP 98; BMI 25.7
== END 2022-10-31 04:23 | disposition home or self-care (01) ==
LOC: JER 23:36
DX: R60.0 Localized edema (principal)
CPT/HCPCS: 93970-TC; 99283-25

== ENCOUNTER 2022-10-31 04:26 | Inpatient (IN) | payer OTHER ==
[2022-10-31 05:16] VITALS: BMI 25.7
[2022-10-31] MEDS ORDERED: IBUPROFEN 600 MG TABLET (FP) PO PRN (06:07)
[2022-10-31] MEDS ORDERED: methaDONE HCL 10 MG TABLET (FOR DETOX USE ONLY) PO ONE (06:07)
[2022-10-31] MEDS ORDERED: ACETAMINOPHEN 325 MG TABLET (FP) PO PRN ×2 (06:07)
[2022-10-31] MEDS ORDERED: IBUPROFEN 400 MG TABLET (FP) PO PRN (06:07)
[2022-10-31] MEDS ORDERED: DICYCLOMINE HCL 10 MG CAPSULE PO PRN (06:07)
[2022-10-31] MEDS ORDERED: MAG HYDROX/AL HYDROX/SIMETH 30 ML UNIT-DOSE CUP PO PRN (06:07)
[2022-10-31] MEDS ORDERED: NICOTINE 10 MG CARTRIDGE (INHALER) IH PRN (06:07)
[2022-10-31] MEDS ORDERED: LOPERAMIDE HCL 2 MG CAPSULE PO PRN (06:07)
[2022-10-31] MEDS ORDERED: MAGNESIUM HYDROX 2400MG/30ML ORAL SUSPENSION 30 ML CUP PO PRN (06:07)
[2022-10-31] MEDS ORDERED: BENZOCAINE/MENTHOL (CHLORASEPTIC ) LOZENGE MM PRN (06:07)
[2022-10-31] MEDS ORDERED: BISMUTH SUBSALICYLATE 524 MG/30 ML PO PRN (06:07)
[2022-10-31] MEDS ORDERED: POLYETHYLENE GLYCOL (HEALTHYLAX) 3350 17 GM PACKET PO PRN (06:07)
[2022-10-31] MEDS ORDERED: NALOXONE HCL (KLOXXADO) 8 MG SPRAY NS PRN (06:07)
[2022-10-31] MEDS ORDERED: ONDANSETRON *ODT* 4 MG TABLET SL PRN (06:07)
[2022-10-31] MEDS ORDERED: methaDONE HCL 10 MG TABLET (FOR DETOX USE ONLY) ONE (06:35)
[2022-10-31] MEDS ORDERED: IBUPROFEN 400 MG TABLET (FP) PO ONE (06:35)
[2022-10-31] MEDS: cloNIDine HCL 0.1 MG TABLET PO PRN ×2 (10:15→22:01)
[2022-10-31] MEDS: METHOCARBAMOL 500 MG TABLET PO PRN ×2 (10:15→22:38)
[2022-10-31] MEDS: PRENATAL VITAMINS W/ FOLIC ACID TABLET (FP) PO SCH (10:15)
[2022-10-31] MEDS: NICOTINE 14 MG/24 HOURS TOPICAL PATCH TD SCH (10:16)
[2022-10-31] MEDS: MELATONIN 5 MG TABLETS PO SCH (22:00)
[2022-10-31] MEDS: THIAMINE HCL 100 MG TABLET (FP) PO SCH (22:00)
[2022-11-01] MEDS: PRENATAL VITAMINS W/ FOLIC ACID TABLET (FP) PO SCH (10:04)
[2022-11-01] MEDS: NICOTINE 14 MG/24 HOURS TOPICAL PATCH TD SCH (10:05)
[2022-11-01] MEDS: cloNIDine HCL 0.1 MG TABLET PO PRN (10:05)
[2022-11-01] MEDS: METHOCARBAMOL 500 MG TABLET PO PRN (10:05)
[2022-11-01] MEDS: diazePAM 5 MG TABLET PO PRN ×3 (12:01→22:10)
[2022-11-01 12:15] LABS: HEMATOCRIT 35.2 % (35.4-49); HEMOGLOBIN 12.2 GM/dL (11.7-16.9); MCH 30.8 pg (25.7-33.7); MCHC 34.7 g/dl (32.0-35.9); MEAN CELL VOLUME 88.9 fl (80-96); MEAN PLT VOLUME 9.8 fl (7.5-11.1); PLATELET COUNT 170 10^3/uL (134-434); RBC 3.96 M/mm3 (4.00-5.60); RDW 15.6 % (11.9-15.9); WHITE BLOOD COUNT 8.7 K/mm3 (4.0-10.0)
[2022-11-01 12:26] LABS: BILIRUBIN,TOTAL 0.6 mg/dL (0.2-1); BLOOD UREA NITROGEN 12.8 mg/dL (7-18); CALCIUM 9.2 mg/dL (8.5-10.1); TOT PROT 7.7 g/dl (6.4-8.2)
[2022-11-01 12:29] LABS: CREATININE 0.7 mg/dL (0.55-1.3)
[2022-11-01 12:30] LABS: ALBUMIN 3.5 g/dl (3.4-5.0)
[2022-11-01] MEDS: MELATONIN 5 MG TABLETS PO SCH (22:10)
[2022-11-01] MEDS: THIAMINE HCL 100 MG TABLET (FP) PO SCH (22:10)
[2022-11-02 06:22] VITALS: RESP 16
[2022-11-02 09:23] VITALS: BP 134/73; PULSE 63; TEMP 96.9
[2022-11-02] MEDS ORDERED: methaDONE HCL 10 MG TABLET (FOR DETOX USE ONLY) PO ONE (10:00)
[2022-11-02 12:10] LABS: SGPT/ALT 330 U/L (13-61)
[2022-11-02 12:11] LABS: SGOT/AST 171 U/L (15-37)
[2022-11-04] MEDS ORDERED: methaDONE HCL 10 MG TABLET (FOR DETOX USE ONLY) PO ONE (10:00)
== END 2022-11-02 09:16 | disposition left against medical advice (07) | DRG 770 ==
LOC: YASAS 04:26 → Y6N 06:52
PROVIDERS: ADMIT Allergy & Immunology; ATTEND Allergy & Immunology
PROC: HZ2ZZZZ Detoxification Services for Substance Abuse Treatment (ICD-10-PCS; principal; 2022-10-31)
DX: F11.23 Opioid dependence with withdrawal (principal); F14.20 Cocaine dependence, uncomplicated; F12.20 Cannabis dependence, uncomplicated; F17.210 Nicotine dependence, cigarettes, uncomplicated; F19.282 Other psychoactive substance dependence with psychoactive substance-induced sleep disorder; F39 Unspecified mood [affective] disorder; F43.10 Post-traumatic stress disorder, unspecified; F33.42 Major depressive disorder, recurrent, in full remission; R73.9 Hyperglycemia, unspecified; R60.0 Localized edema; R74.8 Abnormal levels of other serum enzymes; Z86.11 Personal history of tuberculosis; Z99.89 Dependence on other enabling machines and devices
CPT/HCPCS: 36415; 71046-TC-FY; 80053; 83036; 84450; 84460; 85027; 86780; 87811; 93005; 93010

== ENCOUNTER 2024-06-29 13:43 | Inpatient (IN) | payer OTHER ==
[2024-06-29 15:38] VITALS: BMI 23.1
[2024-06-29] MEDS ORDERED: BENZOCAINE/MENTHOL (CHLORASEPTIC ) LOZENGE MM PRN (19:03)
[2024-06-29] MEDS ORDERED: guaiFENesin 600 MG TABLET.ER (FP) PO PRN (19:03)
[2024-06-29] MEDS ORDERED: NICOTINE POLACRILEX 2 MG GUM BUC PRN (19:03)
[2024-06-29] MEDS ORDERED: IBUPROFEN 400 MG TABLET (FP) PO PRN (19:03)
[2024-06-29] MEDS ORDERED: ACETAMINOPHEN 325 MG TABLET (FP) PO PRN (19:03)
[2024-06-29] MEDS ORDERED: MAG HYDROX/AL HYDROX/SIMETH 30 ML UNIT-DOSE CUP PO PRN (19:03)
[2024-06-29] MEDS ORDERED: NALOXONE (NARCAN) HCL 4 MG/0.1 ML SPRAY NS PRN (19:03)
[2024-06-29] MEDS ORDERED: BENZONATATE 200 MG CAPSULE PO PRN (19:03)
[2024-06-29] MEDS ORDERED: POLYETHYLENE GLYCOL (HEALTHYLAX) 3350 17 GM PACKET PO PRN (19:03)
[2024-06-29] MEDS ORDERED: DICYCLOMINE HCL 10 MG CAPSULE PO PRN (19:03)
[2024-06-29] MEDS ORDERED: ONDANSETRON *ODT* 4 MG TABLET SL PRN (19:03)
[2024-06-29] MEDS ORDERED: MAGNESIUM HYDROX 2400MG/30ML ORAL SUSPENSION 30 ML CUP PO PRN (19:03)
[2024-06-29] MEDS ORDERED: NICOTINE POLACRILEX 2 MG LOZENGE BC PRN (19:03)
[2024-06-29] MEDS ORDERED: LOPERAMIDE HCL 2 MG CAPSULE PO PRN (19:03)
[2024-06-29] MEDS ORDERED: BISMUTH SUBSALICYLATE 524 MG/30 ML PO PRN (19:03)
[2024-06-29] MEDS: METHOCARBAMOL 500 MG TABLET PO PRN (21:31)
[2024-06-29] MEDS: MELATONIN 5 MG TABLETS PO SCH (21:31)
[2024-06-29] MEDS: THIAMINE 100 MG TABLET PO SCH (21:31)
[2024-06-30] MEDS: IBUPROFEN 600 MG TABLET (FP) PO PRN (08:40)
[2024-06-30 09:43] LABS: HEMATOCRIT 29.4 % (35.4-49); HEMOGLOBIN 9.8 GM/dL (11.7-16.9); MCHC 33.4 g/dl (32.0-35.9); MEAN CELL VOLUME 86.9 fl (80-96); MEAN PLT VOLUME 8.8 fl (7.5-11.1); PLATELET COUNT 151 10^3/uL (134-434); RBC 3.38 M/mm3 (4.00-5.60); RDW 16.5 % (11.9-15.9); WHITE BLOOD COUNT 7.1 K/mm3 (4.0-10.0)
[2024-06-30] MEDS: PRENATAL VITAMINS W/ FOLIC ACID TABLET (FP) PO SCH (09:58)
[2024-06-30 10:26] LABS: CHLORIDE 108 mmol/L (98-107); POTASSIUM 4.8 mmol/L (3.5-5.1); SODIUM 139 mmol/L (136-145)
[2024-06-30 10:29] LABS: CALCIUM 9.1 mg/dL (8.5-10.1)
[2024-06-30 10:30] LABS: ALBUMIN 3.1 g/dl (3.4-5.0); ANION GAP 4 mmol/L (4-13); BLOOD UREA NITROGEN 28.6 mg/dL (7-18); CO2 27 mmol/L (21-32); GLUCOSE,RANDOM 92 mg/dL (74-106)
[2024-06-30 10:33] LABS: CREATININE 1.4 mg/dL (0.55-1.3); SGOT/AST 25 U/L (15-37); SGPT/ALT 28 U/L (13-61)
[2024-06-30 10:35] LABS: BILIRUBIN,TOTAL 0.3 mg/dL (0.2-1); TOT PROT 7.3 g/dl (6.4-8.2)
[2024-06-30 10:36] LABS: ALK PHOS 72 U/L (45-117)
[2024-06-30] MEDS: methaDONE 40 MG, methaDONE 30 MG PO SCH (12:47)
[2024-06-30] MEDS: methaDONE HCL 40 MG DISPERSABLE TABLET PO SCH (12:50)
[2024-07-01] MEDS ORDERED: LORazepam 1 MG TABLET PO PRN (10:27)
[2024-07-01] MEDS: LORazepam 1 MG TABLET PO SCH (10:36)
[2024-07-02] MEDS: LORazepam 0.5 MG TABLET PO SCH (05:28)
[2024-07-02 15:23] LABS: IRON SERUM 91 ug/dL (50-175); TOTAL IRON BINDING CAPACITY 388 ug/dL (250-450)
[2024-07-02 15:38] LABS: POTASSIUM 4.9 mmol/L (3.5-5.1)
[2024-07-02 15:41] LABS: BLOOD UREA NITROGEN 29.3 mg/dL (7-18); CALCIUM 9.5 mg/dL (8.5-10.1)
[2024-07-02 15:45] LABS: CREATININE 1.5 mg/dL (0.55-1.3); PHOSPHOROUS 3.7 mg/dL (2.5-4.9)
[2024-07-02 15:48] LABS: ALBUMIN 3.8 g/dl (3.4-5.0)
[2024-07-03] MEDS: LORazepam 0.5 MG TABLET PO ONE (05:31)
[2024-07-03 09:08] VITALS: BP 115/69; PULSE 69; RESP 16; TEMP 98
[2024-07-03] MEDS: NALOXONE (NYS OPIOID OVERDOSE PROGRAM) 4 MG/0.1 ML SPRAY NS PRN (09:17)
== END 2024-07-03 09:21 | disposition home or self-care (01) | DRG 773 ==
LOC: YASAS 13:43 → Y6N 20:46
PROVIDERS: ADMIT Allergy & Immunology; ATTEND Surgery
PROC: HZ2ZZZZ Detoxification Services for Substance Abuse Treatment (ICD-10-PCS; principal; 2024-06-29)
DX: F10.230 Alcohol dependence with withdrawal, uncomplicated (principal); F11.20 Opioid dependence, uncomplicated; F14.20 Cocaine dependence, uncomplicated; F12.20 Cannabis dependence, uncomplicated; F17.213 Nicotine dependence, cigarettes, with withdrawal; D64.9 Anemia, unspecified; R79.89 Other specified abnormal findings of blood chemistry; Z96.0 Presence of urogenital implants
CPT/HCPCS: 36415; 71046-TC-FY; 80053; 80069; 80305; 80307; 82607; 82728; 82747; 83540; 83550; 85014; 85027; 86780; 93005; 93010

== ENCOUNTER 2024-08-25 15:19 | Inpatient (IN) | payer OTHER ==
[2024-08-25 16:14] VITALS: BMI 21.8
[2024-08-25] MEDS ORDERED: ACETAMINOPHEN INJECTION 100 ML ONE (16:32)
[2024-08-25 16:35] LABS: BASO % 0.3 % (0-2.0); HEMATOCRIT 32.7 % (35.4-49); HEMOGLOBIN 10.9 GM/dL (11.7-16.9); LYMPH % 5.9 % (8-40); MCH 28.5 pg (25.7-33.7); MCHC 33.3 g/dl (32.0-35.9); MEAN CELL VOLUME 85.5 fl (80-96); MEAN PLT VOLUME 8.7 fl (7.5-11.1); MONO % 5.5 % (3.8-10.2); NEUT % 88.3 % (42.8-82.8); PLATELET COUNT 141 10^3/uL (134-434); RBC 3.83 M/mm3 (4.00-5.60); RDW 14.8 % (11.9-15.9); WHITE BLOOD COUNT 14.8 K/mm3 (4.0-10.0)
[2024-08-25] MEDS: ACETAMINOPHEN 1000 MG/100 ML BAG IVPB ONE (16:37)
[2024-08-25 16:41] LABS: INR 1.24 (0.83-1.09); PROTHROMBIN TIME (PATIENT) 13.9 SEC (9.7-13.0)
[2024-08-25 16:44] LABS: ACTIVATED PTT 30.9 SECONDS (25.2-36.5)
[2024-08-25 16:58] LABS: CHLORIDE 104 mmol/L (98-107); POTASSIUM 3.7 mmol/L (3.5-5.1); SODIUM 135 mmol/L (136-145)
[2024-08-25 17:01] LABS: ALBUMIN 3.7 g/dl (3.4-5.0); ANION GAP 9 mmol/L (4-13); CALCIUM 8.7 mg/dL (8.5-10.1); CO2 22 mmol/L (21-32); GLUCOSE,RANDOM 92 mg/dL (74-106)
[2024-08-25 17:04] LABS: CREATININE 1.3 mg/dL (0.55-1.3); SGOT/AST 57 U/L (15-37); SGPT/ALT 43 U/L (13-61)
[2024-08-25 17:06] LABS: BILIRUBIN,TOTAL 0.7 mg/dL (0.2-1); TOT PROT 7.4 g/dl (6.4-8.2)
[2024-08-25 17:07] LABS: ALK PHOS 80 U/L (45-117)
[2024-08-25] MEDS ORDERED: LORazepam 2 MG/ML SDV VIAL ONE (17:25)
[2024-08-25] MEDS: SODIUM CHLORIDE 0.9% 1000 ML INFUS.BAG IV ONE (18:05)
[2024-08-25 18:32] LABS: OPIATES, URI NEGATIVE (NEGATIVE); PHENCYCLIDINE,URINE NEGATIVE (NEGATIVE); URINE BENZODIAZEPINES NEGATIVE (NEGATIVE)
[2024-08-25 18:35] LABS: COCAINE, UR POSITIVE (NEGATIVE); METHADONE, UR POSITIVE (NEGATIVE); URINE AMPHETAMINES POSITIVE (NEGATIVE); URINE BARBITURATES NEGATIVE (NEGATIVE)
[2024-08-25] MEDS ORDERED: methaDONE HCL 40 MG DISPERSABLE TABLET ONE (18:53)
[2024-08-25] MEDS ORDERED: methaDONE HCL 10 MG TABLET ONE (18:53)
[2024-08-25] MEDS: methaDONE 40 MG, methaDONE 30 MG PO ONE (19:11)
[2024-08-25 20:50] LABS: URINE APPEARANCE CLOUDY; URINE BILIRUBIN NEGATIVE (NEGATIVE); URINE COLOR YELLOW; URINE GLUCOSE (UA) NEGATIVE (NEGATIVE); URINE KETONE NEGATIVE (NEGATIVE); URINE LEUK ESTERASE 3+ (NEGATIVE); URINE NITRITE NEGATIVE (NEGATIVE); URINE PROTEIN 1+ (NEGATIVE)
[2024-08-25 20:58] LABS: URINE BACTERIA 24858.5 /uL (0-1359); URINE RBC 20.9 /uL (0-23.9); URINE WBC 1929.9 /uL (0-25.8)
[2024-08-26] MEDS ORDERED: CEFTRIAXONE 1 G/50 ML PREMIX 50 ML IVPB ONE (01:09)
[2024-08-26] MEDS: SODIUM CHLORIDE 0.9% 1000 ML INFUS.BAG IV ONE (01:16)
[2024-08-26] MEDS: CEFTRIAXONE 1 GM in DEXTROSE 5%-WATER - 50 ML IVPB ONE (01:16)
[2024-08-26] MEDS ORDERED: ACETAMINOPHEN INJECTION 100 ML ONE (01:49)
[2024-08-26] MEDS: ACETAMINOPHEN 1000 MG/100 ML BAG IVPB ONE (01:53)
[2024-08-26] MEDS ORDERED: NICOTINE POLACRILEX 2 MG GUM BUC PRN (04:58)
[2024-08-26] MEDS ORDERED: NICOTINE POLACRILEX 4 MG LOZENGE BC PRN (04:59)
[2024-08-26] MEDS ORDERED: ACETAMINOPHEN 1000 MG/100 ML BAG IVPB PRN (05:06)
[2024-08-26] MEDS ORDERED: LORazepam 1 MG TABLET PO PRN (06:19)
[2024-08-26] MEDS ORDERED: LORazepam 1 MG TABLET ONE (06:33)
[2024-08-26] MEDS: LORazepam 1 MG TABLET PO SCH (06:35)
[2024-08-26 08:25] LABS: BASO % 0.2 % (0-2.0); HEMATOCRIT 30.7 % (35.4-49); HEMOGLOBIN 10.2 GM/dL (11.7-16.9); LYMPH % 4.9 % (8-40); MCH 28.5 pg (25.7-33.7); MCHC 33.2 g/dl (32.0-35.9); MEAN CELL VOLUME 86.1 fl (80-96); MEAN PLT VOLUME 9.3 fl (7.5-11.1); MONO % 6.8 % (3.8-10.2); NEUT % 88.1 % (42.8-82.8); PLATELET COUNT 105 10^3/uL (134-434); RBC 3.57 M/mm3 (4.00-5.60); WHITE BLOOD COUNT 13.9 K/mm3 (4.0-10.0)
[2024-08-26 08:36] LABS: POTASSIUM 3.7 mmol/L (3.5-5.1)
[2024-08-26 08:38] LABS: CALCIUM 8.2 mg/dL (8.5-10.1)
[2024-08-26 08:39] LABS: BLOOD UREA NITROGEN 29.4 mg/dL (7-18); MAGNESIUM 1.9 mg/dL (1.8-2.4)
[2024-08-26 08:42] LABS: CREATININE 1.6 mg/dL (0.55-1.3); PHOSPHOROUS 3.2 mg/dL (2.5-4.9)
[2024-08-26 08:43] LABS: BILIRUBIN,TOTAL 0.6 mg/dL (0.2-1); TOT PROT 5.9 g/dl (6.4-8.2)
[2024-08-26 08:50] LABS: ALBUMIN 2.8 g/dl (3.4-5.0)
[2024-08-26] MEDS: LORazepam 2 MG/ML SDV VIAL IVPUSH ONE (08:57)
[2024-08-26] MEDS: TAMSULOSIN HCL 0.4 MG CAP PO SCH (08:57)
[2024-08-26] MEDS ORDERED: methaDONE 40 MG, methaDONE 30 MG PO SCH (10:00)
[2024-08-26] MEDS: ENOXAPARIN NA (PORCINE) 40 MG/0.4 ML DISP.SYRIN SQ SCH (10:05)
[2024-08-26] MEDS: CEFTRIAXONE 1 G/50 ML PREMIX 50 ML IVPB SCH (10:05)
[2024-08-26] MEDS: FOLIC ACID 1 MG TABLET (FP) PO SCH (10:05)
[2024-08-26] MEDS: SODIUM CHLORIDE 1,000 ML IV SCH (10:29)
[2024-08-26 12:40] VITALS: RESP 20
[2024-08-26 21:45] VITALS: TEMP 97.5
[2024-08-26] MEDS: THIAMINE 100 MG TABLET PO SCH (22:55)
[2024-08-27] MEDS: LORazepam 1 MG TABLET PO SCH (05:04)
[2024-08-27 05:50] VITALS: BP 118/71; PULSE 61
[2024-08-27] MEDS: LORazepam 2 MG/ML SDV VIAL IVPUSH PRN (09:15)
[2024-08-27 09:37] LABS: BASO % 0.2 % (0-2.0); EOS % 0.6 % (0-4.5); HEMOGLOBIN 10.2 GM/dL (11.7-16.9); LYMPH % 12.2 % (8-40); MCH 28.6 pg (25.7-33.7); MCHC 32.9 g/dl (32.0-35.9); MEAN PLT VOLUME 9.6 fl (7.5-11.1); MONO % 5.6 % (3.8-10.2); NEUT % 81.4 % (42.8-82.8); PLATELET COUNT 109 10^3/uL (134-434); RBC 3.57 M/mm3 (4.00-5.60); WHITE BLOOD COUNT 9.1 K/mm3 (4.0-10.0)
[2024-08-27 10:00] LABS: POTASSIUM 3.5 mmol/L (3.5-5.1)
[2024-08-27 10:06] LABS: CALCIUM 8.7 mg/dL (8.5-10.1)
[2024-08-27 10:10] LABS: BLOOD UREA NITROGEN 24.1 mg/dL (7-18); CREATININE 1.3 mg/dL (0.55-1.3)
[2024-08-28] MEDS ORDERED: LORazepam 0.5 MG TABLET PO PRN
[2024-08-28] MEDS ORDERED: LORazepam 0.5 MG TABLET PO SCH (05:00)
[2024-08-29] MEDS ORDERED: LORazepam 0.5 MG TABLET PO ONE (05:00)
== END 2024-08-27 12:22 | disposition left against medical advice (07) | DRG 816 ==
LOC: JER 15:19 → JERBED 08-26 03:30 → OBSVTOIN 08-26 03:30 → J6S 08-26 08:39
PROVIDERS: ADMIT Internal Medicine; ATTEND Allergy & Immunology
DX: T40.5X2A Poisoning by cocaine, intentional self-harm, initial encounter (principal); N13.30 Unspecified hydronephrosis; R16.1 Splenomegaly, not elsewhere classified; F32.A Depression, unspecified; G47.00 Insomnia, unspecified; R45.851 Suicidal ideations; F43.10 Post-traumatic stress disorder, unspecified; F17.210 Nicotine dependence, cigarettes, uncomplicated; F10.230 Alcohol dependence with withdrawal, uncomplicated; N39.0 Urinary tract infection, site not specified; N40.1 Benign prostatic hyperplasia with lower urinary tract symptoms; F14.10 Cocaine abuse, uncomplicated; R33.8 Other retention of urine; F12.90 Cannabis use, unspecified, uncomplicated; N32.89 Other specified disorders of bladder; Y92.89 Other specified places as the place of occurrence of the external cause
CPT/HCPCS: 0241U-QW; 36415; 70450-TC; 71045-TC-FY; 74177-TC; 80048; 80053; 80307; 81003; 82550; 82553; 82962; 83735; 84100; 84484; 85025; 85610; 85730; 87086; 87186; 93005; 93010; 99285-25; J0131; Q9967